=== PATIENT | female | born 1955 | race Caucasian/White ===

== ENCOUNTER 2018-11-21 18:53 | Inpatient (IN) | payer MEDICAID ==
[~2018-11-21] VITALS: Ht 177.8 cm; Wt 90.0 kg
[2018-11-21 19:51] LABS: Basophils # (auto) 0.1 uL; Basophils % (auto) 0.6 % (0.0-2.0); Eosinophils # (auto) 0 uL; Hematocrit 45.4 % (36.0-46.0); Hemoglobin 15.1 g/dL (12.2-16.2); Mean Corpuscular Hemoglobin 29.6 pg (28.0-32.0); Mean Corpuscular Hgb Conc. 33.3 g/dL (32.0-36.0); Mean Corpuscular Volume 88.9 fL (80.0-100.0); Monocytes # (auto) 0.9 uL; Monocytes % (auto) 6.3 % (0.0-12.0); Neutrophils # (auto) 12.7 uL; Neutrophils % (auto) 86.1 % (37.0-80.0); Platelet Count (auto) 319 10^3/uL (140-450); Red Cell Distribution Width 13.4 % (11.8-14.3); White Blood Cell 14.8 10^3/uL (4.4-10.8)
[2018-11-21 20:08] LABS: Albumin 3.7 g/dL (3.4-5.0); Anion Gap 12 (5-15); Blood Urea Nitrogen 16 mg/dL (7-18); Calcium 9.4 mg/dL (8.5-10.1); Carbon Dioxide 24 mmol/L (21-32); Chloride 103 mmol/L (98-107); Glucose 130 mg/dL (74-106); Magnesium 2.1 mg/dL (1.6-2.6); Potassium 3.6 mmol/L (3.5-5.1); Sodium 139 mmol/L (136-145)
[2018-11-21 20:14] LABS: Alanine Aminotransferase 116 U/L (13-56); Alkaline Phosphatase 155 U/L (45-117); Aspartate Aminotransferase 52 U/L (15-37); BUN/Creatinine Ratio 14.5; Bilirubin, Total 0.2 mg/dL (0.2-1.0); GFR African American 65 mL/min; GFR Non-African American 54 mL/min; Total Protein 8.9 g/dL (6.4-8.2)
[2018-11-22] MEDS ORDERED: IPRATROPIUM BROM 0.5 MG/2.5ML INH SOL NEB ONE (03:00)
[2018-11-22] MEDS ORDERED: LEVOFLOXACIN 250 MG TAB PO ONE (03:00)
[2018-11-22] MEDS ORDERED: methylPREDNISolone SOD SUCC 125 MG/2 ML VL IM ONE (03:00)
[2018-11-22] MEDS ORDERED: ALBUTEROL SULF 2.5 MG/0.5ML(0.5%) NEB SOLN NEB ONE (03:00)
[2018-11-22] MEDS ORDERED: TEMAZEPAM 15 MG CAP PO PRN (04:30)
[2018-11-22] MEDS ORDERED: ONDANSETRON HCL 4 MG/2 ML VIAL IV PRN (04:30)
[2018-11-22] MEDS: IPRATROPIUM BROM 0.5 MG/2.5ML INH SOL NEB SCH ×3 (05:36→19:16)
[2018-11-22] MEDS: ALBUTEROL SULF 2.5 MG/0.5ML(0.5%) NEB SOLN NEB SCH ×3 (05:36→19:16)
[2018-11-22] MEDS ORDERED: ACETAMINOPHEN 325 MG TAB PO PRN (06:57)
[2018-11-22] MEDS: LEVOTHYROXINE SODIUM 100 MCG TAB PO SCH (07:31)
[2018-11-22 09:45] VITALS: BP 141/85
--- NOTE | 2018-11-22 09:45 | NUR ---
Received patient from ER via wheelchair. Patient in bed, with bed in lowest locked position and call light within reach. Patient on 2L NC and resting comfortably. No complaints of pain or SOB. VS 97.7, 98 bpm, 93%, 14RR, bp 141/85. Will continue to monitor.
[2018-11-22] MEDS: cefTRIAXone 1GM/50ML D5W 50 ML IV SCH (09:58)
[2018-11-22] MEDS: FAMOTIDINE 20 MG TAB PO SCH ×2 (09:58→22:36)
--- NOTE | 2018-11-22 11:43 | NUR ---
Dr. Littlejohn bedside with patient discussing plan of care.
[2018-11-22] MEDS ORDERED: AZITHROMYCIN 250 MG TAB PO ONE (12:00)
[2018-11-22] MEDS ORDERED: LEVO100T8 PO (12:01)
--- NOTE | 2018-11-22 12:05 | NUR ---
Talked to [facility], patient needs to be NPO for abdominal US, placed NPO orders per [place] order.
[2018-11-22 13:00] VITALS: BP 119/74
[2018-11-22 13:03] LABS: Basophils # (auto) 0 uL; Basophils % (auto) 0.4 % (0.0-2.0); Eosinophils # (auto) 0 uL; Hematocrit 39.4 % (36.0-46.0); Hemoglobin 13.3 g/dL (12.2-16.2); Lymphocytes # (auto) 0.7 uL; Lymphocytes % (auto) 5.6 % (10.0-50.0); Mean Corpuscular Hemoglobin 29.4 pg (28.0-32.0); Mean Corpuscular Hgb Conc. 33.8 g/dL (32.0-36.0); Mean Corpuscular Volume 86.9 fL (80.0-100.0); Monocytes # (auto) 0.1 uL; Monocytes % (auto) 1.1 % (0.0-12.0); Neutrophils % (auto) 92.9 % (37.0-80.0); Platelet Count (auto) 288 10^3/uL (140-450); Red Blood Cells 4.53 10^6/uL (4.0-5.20); Red Cell Distribution Width 13.2 % (11.8-14.3); White Blood Cell 11.8 10^3/uL (4.4-10.8)
[2018-11-22 13:19] LABS: Albumin 3.3 g/dL (3.4-5.0); BUN/Creatinine Ratio 21.9; Calcium 9.1 mg/dL (8.5-10.1)
[2018-11-22 13:22] LABS: Bilirubin, Total 0.2 mg/dL (0.2-1.0); Total Protein 8.2 g/dL (6.4-8.2)
[2018-11-22 14:16] LABS: Urine WBC None Seen /hpf (0 - 5)
[2018-11-22 14:32] LABS: Urine Bacteria FEW /hpf (None Seen); Urine Blood Negative /uL (Negative); Urine Hyaline Cast FEW /lpf (0 - 2); Urine Specific Gravity 1.017 (1.001-1.035)
[2018-11-22 16:40] VITALS: BP 119/74
--- NOTE | 2018-11-22 16:44 | NUR ---
Ultrasound bedside in patients room completing US of abdomen
[2018-11-22 17:00] VITALS: BP 114/65
--- NOTE | 2018-11-22 19:34 | NUR ---
OPENING NOTES RECEIVED REPORT FROM DAY SHIFT NURSE, LUPE. PT IS AWAKE, ALERT AND ORIENTATED X 4. NO S/S OF DISTRESS NOR PAIN NOTED. NO S/S OF SOB. BED IS IN LOWEST POSITION WITH SIDE RAILS UP X 2. BED BRAKES ARE LOCKED AND CALL LIGHT IS WITH IN REACH. HOB IS 30 DEGREES. DISCUSSED POC WITH PATIENT, PT VERBALIZED UNDERSTANDING. WILL CONTINUE TO MONITOR Q 1HR.
[2018-11-22 22:00] VITALS: BP 123/60
[2018-11-23] MEDS: ALBUTEROL SULF 2.5 MG/0.5ML(0.5%) NEB SOLN NEB SCH ×4 (00:32→19:28)
[2018-11-23] MEDS: IPRATROPIUM BROM 0.5 MG/2.5ML INH SOL NEB SCH ×4 (00:32→19:28)
[2018-11-23 05:00] VITALS: BP 119/71
[2018-11-23] MEDS: LEVOTHYROXINE SODIUM 100 MCG TAB PO SCH (06:00)
[2018-11-23 06:02] LABS: Basophils # (auto) 0.1 uL; Basophils % (auto) 0.9 % (0.0-2.0); Eosinophils # (auto) 0 uL; Eosinophils % (auto) 0.3 % (0.0-7.0); Hematocrit 39.8 % (36.0-46.0); Hemoglobin 13.2 g/dL (12.2-16.2); Lymphocytes # (auto) 2.3 uL; Lymphocytes % (auto) 15.3 % (10.0-50.0); Mean Corpuscular Hemoglobin 29.4 pg (28.0-32.0); Mean Corpuscular Hgb Conc. 33.2 g/dL (32.0-36.0); Mean Corpuscular Volume 88.6 fL (80.0-100.0); Monocytes # (auto) 1.1 uL; Monocytes % (auto) 7.5 % (0.0-12.0); Neutrophils # (auto) 11.7 uL; Nucleated Red Blood Cells % 0.1 %; Platelet Count (auto) 297 10^3/uL (140-450); Red Cell Distribution Width 13.4 % (11.8-14.3); White Blood Cell 15.4 10^3/uL (4.4-10.8)
[2018-11-23 06:26] LABS: BUN/Creatinine Ratio 30.4; Calcium 8.8 mg/dL (8.5-10.1)
--- NOTE | 2018-11-23 07:24 | NUR ---
closing notes endorsed care to day shift nurseJessica.
--- NOTE | 2018-11-23 08:00 | NUR ---
Morning note patient resting in bed with even and unlabored respirations, no distress noted. Instructed patient on POC, fall precautions and to call for assistance as needed. Patient verbalized understanding. Fall precautions in place with call light within reach. Will continue to monitor q1hr & PRN.
[2018-11-23 09:00] VITALS: BP 92/52
--- NOTE | 2018-11-23 09:45 | NUR ---
was at bedside - Dr. Littlejohn
[2018-11-23] MEDS ORDERED: methylPREDNISolone SOD SUCC 40 MG/ML VL IV SCH (10:00)
[2018-11-23] MEDS: cefTRIAXone 1GM/50ML D5W 50 ML IV SCH (10:12)
[2018-11-23] MEDS: AZITHROMYCIN 250 MG TAB PO SCH (10:13)
[2018-11-23] MEDS: FAMOTIDINE 20 MG TAB PO SCH ×2 (10:13→22:03)
[2018-11-23 13:00] VITALS: BP 117/75
--- NOTE | 2018-11-23 16:07 | NUR ---
Patient resting in bed eyes closed, with even and unlabored respirations, no distress noted. Call light within reach. Will continue to monitor q1hr & PRN.
[2018-11-23 17:00] VITALS: BP 104/61
--- NOTE | 2018-11-23 18:45 | NUR ---
Closing note patient resting in bed with even and unlabored respirations, no distress noted. Fall precautions in place with bed in lowest locked position with x2 side rails up and call light within reach.
--- NOTE | 2018-11-23 19:25 | NUR ---
Care endorsed to RORY Head
[2018-11-23] MEDS: methylPREDNISolone SOD SUCC 40 MG/ML VL IV SCH ×2 (19:54→22:03)
--- NOTE | 2018-11-23 20:20 | NUR ---
RECEIVE IN BED NO SOB IS WATCHING TV
[2018-11-23 22:21] VITALS: BP 112/64
[2018-11-24] MEDS: ALBUTEROL SULF 2.5 MG/0.5ML(0.5%) NEB SOLN NEB SCH ×5 (00:32→18:35)
[2018-11-24] MEDS: IPRATROPIUM BROM 0.5 MG/2.5ML INH SOL NEB SCH ×5 (00:32→18:36)
[2018-11-24 05:00] VITALS: BP 117/70
[2018-11-24] MEDS: methylPREDNISolone SOD SUCC 40 MG/ML VL IV SCH ×3 (06:19→21:30)
[2018-11-24] MEDS: LEVOTHYROXINE SODIUM 100 MCG TAB PO SCH (06:20)
--- NOTE | 2018-11-24 06:33 | NUR ---
Respiratory note: PEAK FLOW MEASURED 225LPM PRE MEDNEB TX, POST TX 250LPM. GOAL IS 445LPM. PT TOLERATED WELL.
[2018-11-24 09:00] VITALS: BP 128/76
[2018-11-24] MEDS: cefTRIAXone 1GM/50ML D5W 50 ML IV SCH (09:21)
[2018-11-24] MEDS: AZITHROMYCIN 250 MG TAB PO SCH (09:21)
[2018-11-24] MEDS: FAMOTIDINE 20 MG TAB PO SCH ×2 (09:21→21:30)
--- NOTE | 2018-11-24 12:28 | NUR ---
Respiratory note: PEAK FLOW MEASURED 220LPM PRE MEDNEB TX, POST TX 300LPM. GOAL IS 445LPM. PT TOLERATED WELL.
[2018-11-24 16:31] VITALS: BP 114/66
--- NOTE | 2018-11-24 18:10 | NUR ---
IV removed IV removed due to patient c/o pain at IV site. No trauma to IV site noted. IV removed with clean technique, catheter intact. Dressing applied. Patient tolerated well.
--- NOTE | 2018-11-24 18:49 | NUR ---
Respiratory note:CHECKED PT PF PRE AND POST MED NEB, PRE 150, POST 200.
--- NOTE | 2018-11-24 19:10 | NUR ---
Care endorsed to RORY Zelaya
--- NOTE | 2018-11-24 20:00 | NUR ---
RECEIVE IN BED WATCHING TV GAUGE 22 ANGIOCATH INSERTED IN RT FOREARM
[2018-11-24 21:49] VITALS: BP 123/74
[2018-11-25] MEDS: IPRATROPIUM BROM 0.5 MG/2.5ML INH SOL NEB SCH ×3 (00:28→11:00)
[2018-11-25] MEDS: ALBUTEROL SULF 2.5 MG/0.5ML(0.5%) NEB SOLN NEB SCH ×3 (00:28→11:00)
[2018-11-25 05:00] VITALS: BP 115/79
[2018-11-25] MEDS: methylPREDNISolone SOD SUCC 40 MG/ML VL IV SCH (06:00)
[2018-11-25] MEDS: LEVOTHYROXINE SODIUM 100 MCG TAB PO SCH (06:48)
--- NOTE | 2018-11-25 07:47 | NUR ---
Opening Shift Note: Assumed care of patient, awake and alert. No S/S of distress/SOB or pain. Bed in lowest locked position, side rails x 2, call light within reach. Patient instructed on POC and to call for assist PRN, will continue to monitor for changes Q1hr and PRN.
[2018-11-25] MEDS: cefTRIAXone 1GM/50ML D5W 50 ML IV SCH (08:41)
[2018-11-25 09:00] VITALS: BP 132/78
[2018-11-25] MEDS: AZITHROMYCIN 250 MG TAB PO SCH (10:27)
[2018-11-25] MEDS: FAMOTIDINE 20 MG TAB PO SCH (10:27)
[2018-11-25 10:47] VITALS: BP 115/79
--- NOTE | 2018-11-25 11:10 | NUR ---
Respiratory note: PRE MED NEB TX PF:250/POST MED NEB TX PF:260
[2018-11-25 12:29] VITALS: BP 148/88
--- NOTE | 2018-11-25 13:08 | NUR ---
Discharge instructions given as ordered. Encourage to follow up with PMD as instructed. All questions and concerns addressed. Patient verbalized understanding. Medication reconciliation form completed and copy given to patient. IV removed with catheter intact, pressure dressing applied,patient tolerated well. Patient ambulated to vehicle with all personal belongings, accompanied by staff and family member. No distress noted at time of departure.
== END 2018-11-25 13:07 | disposition home or self-care (01) | DRG 133 ==
LOC: ER 18:53 → OVERFLOW 18:54 → ER 23:25 → WEST WING 11-22 09:13
PROVIDERS: ADMIT Nurse Practitioner; ATTEND Internal Medicine Nephrology
DX: J96.21 Acute and chronic respiratory failure with hypoxia (principal); N17.0 Acute kidney failure with tubular necrosis; R65.11 Systemic inflammatory response syndrome (SIRS) of non-infectious origin with acute organ dysfunction; J44.1 Chronic obstructive pulmonary disease with (acute) exacerbation; J45.901 Unspecified asthma with (acute) exacerbation; F17.210 Nicotine dependence, cigarettes, uncomplicated; D72.829 Elevated white blood cell count, unspecified; I10 Essential (primary) hypertension; E03.9 Hypothyroidism, unspecified
CPT/HCPCS: 36415; 36600; 71046; 76700; 80048; 80053; 81001; 82306; 82805; 83735; 83880; 84484; 85025; 85379; 87081; 93005; 93306; 94010; 94640; 96372; G0378; J0696

== ENCOUNTER 2020-08-13 19:12 | Emergency (ER) | payer MEDICAID, OTHER ==
[~2020-08-13] VITALS: Ht 172.7 cm; Wt 81.6 kg
[~2020-08-13 19:12] MED LIST: LEVO100T8 PO
[2020-08-13 20:03] LABS: Basophils # (auto) 0.1 10 ^3/uL (0-0.2); Basophils % (auto) 1.2 % (0.0-2.0); Eosinophils # (auto) 0 10 ^3/uL (0-0.8); Eosinophils % (auto) 0.4 % (0.0-7.0); Hematocrit 41.4 % (36.0-46.0); Hemoglobin 14.4 g/dL (12.2-16.2); Lymphocytes # (auto) 1.2 10 ^3/uL (0.4-5.4); Lymphocytes % (auto) 14.9 % (10.0-50.0); Mean Corpuscular Hemoglobin 30.3 pg (28.0-32.0); Mean Corpuscular Hgb Conc. 34.7 g/dL (32.0-36.0); Mean Corpuscular Volume 87.3 fL (80.0-100.0); Monocytes # (auto) 0.7 10 ^3/uL (0-1.3); Monocytes % (auto) 8.6 % (0.0-12.0); Neutrophils # (auto) 5.9 10 ^3/uL (1.6-8.6); Neutrophils % (auto) 74.9 % (37.0-80.0); Nucleated Red Blood Cells % 0.1 %; Platelet Count (auto) 231 10^3/uL (140-450); Red Blood Cells 4.74 10^6/uL (4.0-5.20); Red Cell Distribution Width 13.7 % (11.8-14.3); White Blood Cell 7.8 10^3/uL (4.4-10.8)
[2020-08-13 20:12] LABS: Albumin 3.3 g/dL (3.4-5.0); Anion Gap 9 (5-15); Blood Urea Nitrogen 14 mg/dL (7-18); Calcium 8.7 mg/dL (8.5-10.1); Carbon Dioxide 24 mmol/L (21-32); Chloride 100 mmol/L (98-107); Glucose 103 mg/dL (74-106); Potassium 3.7 mmol/L (3.5-5.1); Sodium 133 mmol/L (136-145)
[2020-08-13 20:14] LABS: Alanine Aminotransferase 122 U/L (13-56); Aspartate Aminotransferase 126 U/L (15-37); BUN/Creatinine Ratio 12.6; GFR African American 64 mL/min; GFR Non-African American 53 mL/min
[2020-08-13 20:19] LABS: Alkaline Phosphatase 163 U/L (45-117); Bilirubin, Total 0.4 mg/dL (0.2-1.0)
[2020-08-13] MEDS ORDERED: ALBUTEROL SULF 2.5 MG/0.5ML(0.5%) NEB SOLN NEB ONE ×2 (20:45→21:30)
[2020-08-13] MEDS ORDERED: methylPREDNISolone SOD SUCC 125 MG/2 ML VL IV ONE (20:45)
[2020-08-13] MEDS ORDERED: IPRATROPIUM BROM 0.5 MG/2.5ML INH SOL NEB ONE (21:30)
[2020-08-14 01:26] VITALS: BP 126/76
== END 2020-08-14 01:49 | disposition home or self-care (01) ==
LOC: EDBD 19:12 → ER 19:15
DX: J45.901 Unspecified asthma with (acute) exacerbation (principal)
CPT/HCPCS: 36415; 71045; 80053; 84481; 84484; 85025; 85049; 93005; 94640; 96374; 99285; J2930; J7644

== ENCOUNTER 2021-12-31 22:30 | Emergency (ER) | payer OTHER ==
[~2021-12-31] VITALS: Ht 177.8 cm; Wt 90.0 kg
[2021-12-31 22:55] VITALS: BP 141/85
[2021-12-31] MEDS ORDERED: IPRATROPIUM BROM 0.5 MG/2.5ML INH SOL NEB ONE (23:15)
[2021-12-31] MEDS ORDERED: ALBUTEROL SULF 2.5 MG/0.5ML(0.5%) NEB SOLN NEB ONE (23:15)
[2021-12-31 23:52] LABS: Basophils # (auto) 0.1 10 ^3/uL (0-0.2); Basophils % (auto) 1.2 % (0.0-2.0); Eosinophils # (auto) 0.8 10 ^3/uL (0-0.8); Eosinophils % (auto) 7.1 % (0.0-7.0); Hematocrit 46.2 % (36.0-46.0); Hemoglobin 15.3 g/dL (12.2-16.2); Mean Corpuscular Hemoglobin 29.8 pg (28.0-32.0); Mean Corpuscular Volume 90.3 fL (80.0-100.0); Monocytes # (auto) 0.7 10 ^3/uL (0-1.3); Monocytes % (auto) 6.2 % (0.0-12.0); Neutrophils # (auto) 7.6 10 ^3/uL (1.6-8.6); Neutrophils % (auto) 67.5 % (37.0-80.0); Nucleated Red Blood Cells % 0.3 %; Red Blood Cells 5.12 10^6/uL (4.0-5.20); Red Cell Distribution Width 14.1 % (11.8-14.3); White Blood Cell 11.3 10^3/uL (4.4-10.8)
[2021-12-31 23:57] LABS: Albumin 3.5 g/dL (3.4-5.0); BUN/Creatinine Ratio 21.3; Calcium 9.1 mg/dL (8.5-10.1)
[2022-01-01 00:02] LABS: Bilirubin, Total 0.2 mg/dL (0.2-1.0); Total Protein 8.7 g/dL (6.4-8.2)
[2022-01-01] MEDS ORDERED: methylPREDNISolone SOD SUCC 125 MG/2 ML VL IV ONE (00:15)
[2022-01-01] MEDS ORDERED: ALBU0.084 NEB (03:06)
[2022-01-01] MEDS ORDERED: PRED20TA2 PO (03:06)
== END 2022-01-01 04:59 | disposition home or self-care (01) ==
LOC: ER 22:35
DX: J45.901 Unspecified asthma with (acute) exacerbation (principal); J44.9 Chronic obstructive pulmonary disease, unspecified; E03.9 Hypothyroidism, unspecified; I10 Essential (primary) hypertension; K21.9 Gastro-esophageal reflux disease without esophagitis; Z76.0 Encounter for issue of repeat prescription; Z20.822 Contact with and (suspected) exposure to COVID-19
CPT/HCPCS: 36415; 71045; 80053; 83880; 84484; 85025; 87426; 87804; 94640; 96374; 99284; J2930; J7644

== ENCOUNTER 2023-07-06 19:43 | Inpatient (IN) | payer MEDICARE, OTHER ==
[~2023-07-06] VITALS: Ht 177.8 cm; Wt 124.6 kg
[~2023-07-06 19:43] MED LIST changes: +ALBU0.084 NEB; +PRED20TA2 PO
[2023-07-06] MEDS: IPRATROPIUM BROM 0.5 MG/2.5ML INH SOL NEB ONE (21:32)
[2023-07-06] MEDS: ALBUTEROL SULF 2.5 MG/0.5ML(0.5%) NEB SOLN NEB ONE (21:32)
[2023-07-06 21:36] LABS: Basophils # (auto) 0 10 ^3/uL (0-0.2); Basophils % (auto) 0.2 % (0.0-2.0); Eosinophils # (auto) 0.5 10 ^3/uL (0-0.8); Eosinophils % (auto) 5.5 % (0.0-7.0); Hematocrit 43.8 % (36.0-46.0); Hemoglobin 14.5 g/dL (12.2-16.2); Lymphocytes # (auto) 1.4 10 ^3/uL (0.4-5.4); Lymphocytes % (auto) 15.8 % (10.0-50.0); Mean Corpuscular Hemoglobin 29.8 pg (28.0-32.0); Mean Corpuscular Hgb Conc. 33.1 g/dL (32.0-36.0); Mean Corpuscular Volume 90.1 fL (80.0-100.0); Monocytes # (auto) 0.7 10 ^3/uL (0-1.3); Monocytes % (auto) 7.3 % (0.0-12.0); Neutrophils # (auto) 6.4 10 ^3/uL (1.6-8.6); Neutrophils % (auto) 71.2 % (37.0-80.0); Nucleated Red Blood Cells % 0.1 %; Red Blood Cells 4.86 10^6/uL (4.0-5.20); Red Cell Distribution Width 12.9 % (11.8-14.3)
[2023-07-06 21:50] LABS: INR 0.98 (0.9-1.15); Partial Thromboplastin Time 26.8 SEC (24.5-34.5); Prothrombin Time 10.4 sec (9.3-11.8)
[2023-07-06 21:54] LABS: Alanine Aminotransferase 24 U/L (7-40); Alkaline Phosphatase 114 U/L (46-116); Anion Gap 4 (5-15); Aspartate Aminotransferase 23 U/L (13-40); BUN/Creatinine Ratio 15.3 (10.0-20.0); Bilirubin, Total 0.3 mg/dL (0.2-1.0); Blood Urea Nitrogen 13 mg/dL (9-23); Calcium 9.5 mg/dL (8.7-10.4); Carbon Dioxide 28 mmol/L (20-30); Chloride 103 mmol/L (98-107); Glucose 139 mg/dL (74-106); Potassium 3.9 mmol/L (3.5-5.1); Sodium 135 mmol/L (136-145); Total Protein 8.3 g/dL (5.7-8.2)
[2023-07-06 22:34] LABS: Base Excess -0.5 mmol/L (-2.0-2.0)
[2023-07-07] VITALS (16 sets, daily range): BP systolic 109–127; BP diastolic 64–67; PULSE 86–106; RESP 13–20; TEMP 98.2–98.7; O2SAT 90–98
[2023-07-07] MEDS: IPRATROPIUM BROM 0.5 MG/2.5ML INH SOL NEB ONE ×2 (00:32→07:39)
[2023-07-07] MEDS: ALBUTEROL SULF 2.5 MG/0.5ML(0.5%) NEB SOLN ONE (00:33)
[2023-07-07] MEDS: ALBUTEROL SULF 2.5 MG/0.5ML(0.5%) NEB SOLN NEB ONE ×2 (00:33→07:38)
[2023-07-07] MEDS: IPRATROPIUM BROM 0.5 MG/2.5ML INH SOL ONE (00:33)
[2023-07-07] MEDS: methylPREDNISolone SOD SUCC 125 MG/2 ML VL IV ONE (01:47)
[2023-07-07] MEDS: cefTRIAXone 1GM/50ML D5W 50 ML IV ONE (01:47)
[2023-07-07] MEDS: AZITHROMYCIN 500MG/ 250ML 250 ML IV ONE (02:06)
[2023-07-07 03:37] LABS: COVID19 ANTIGEN SOFIA FIA NEGATIVE (NEGATIVE); Rapid Influenza A Negative (Negative); Rapid Influenza B Negative (Negative)
[2023-07-07] MEDS ORDERED: MORPHINE SULFATE INJ 2 MG/ml SYRG IV PRN (06:15)
[2023-07-07] MEDS ORDERED: NITROGLYCERIN 0.4 MG SL TAB SL PRN (06:15)
[2023-07-07] MEDS ORDERED: MORPHINE SULFATE 4 MG/ML SYR/VIAL IV PRN (06:45)
[2023-07-07 06:48] LABS: Basophils # (auto) 0.1 10 ^3/uL (0-0.2); Basophils % (auto) 0.6 % (0.0-2.0); Eosinophils # (auto) 0 10 ^3/uL (0-0.8); Eosinophils % (auto) 0.2 % (0.0-7.0); Hematocrit 42.7 % (36.0-46.0); Hemoglobin 14.1 g/dL (12.2-16.2); Lymphocytes # (auto) 0.6 10 ^3/uL (0.4-5.4); Lymphocytes % (auto) 6.2 % (10.0-50.0); Mean Corpuscular Hgb Conc. 32.9 g/dL (32.0-36.0); Monocytes # (auto) 0.1 10 ^3/uL (0-1.3); Neutrophils # (auto) 9.3 10 ^3/uL (1.6-8.6); Red Blood Cells 4.69 10^6/uL (4.0-5.20); Red Cell Distribution Width 13.1 % (11.8-14.3); White Blood Cell 10.1 10^3/uL (4.4-10.8)
[2023-07-07] MEDS: IOHEXOL 350 MG/ML 100ML IJ ONE (06:59)
[2023-07-07 07:11] LABS: Alanine Aminotransferase 19 U/L (7-40); Alkaline Phosphatase 104 U/L (46-116); Anion Gap 6 (5-15); BUN/Creatinine Ratio 11.3 (10.0-20.0); Blood Urea Nitrogen 9 mg/dL (9-23); Calcium 9.2 mg/dL (8.7-10.4); Carbon Dioxide 24 mmol/L (20-30); Chloride 105 mmol/L (98-107); Glucose 174 mg/dL (74-106); Potassium 4.4 mmol/L (3.5-5.1); Sodium 135 mmol/L (136-145)
[2023-07-07 07:12] LABS: Albumin 3.8 g/dL (3.2-4.8); Aspartate Aminotransferase 18 U/L (13-40); Bilirubin, Total 0.3 mg/dL (0.2-1.0); Total Protein 7.9 g/dL (5.7-8.2)
[2023-07-07] MEDS: ALBUTEROL SULF 2.5 MG/0.5ML(0.5%) NEB SOLN NEB SCH ×2 (10:36→14:19)
[2023-07-07] MEDS: IPRATROPIUM BROM 0.5 MG/2.5ML INH SOL NEB SCH ×2 (10:36→14:20)
[2023-07-07] MEDS: BUDESONIDE (INHALATION) 0.5 MG/2 ML NEB NEB SCH (10:36)
[2023-07-07] MEDS: AZITHROMYCIN 250 MG TAB PO ONE (12:05)
[2023-07-07] MEDS: PANTOPRAZOLE 40 MG TAB PO ONE (12:05)
[2023-07-07] MEDS: methylPREDNISolone SOD SUCC 125 MG/2 ML VL IV SCH (14:29)
[2023-07-07 18:28] LABS: Urine Bacteria None Seen /hpf (None Seen)
[2023-07-07 18:48] LABS: Urine Blood Negative /uL (Negative); Urine Clarity Clear (Clear); Urine Color Yellow (Yellow); Urine Protein, UAD TRACE (Negative); Urine Urobilinogen Normal (Negative); Urine WBC <1 /hpf (0 - 5); Urine pH 6.5 (5.0-9.0)
[2023-07-07 18:49] LABS: Urine Specific Gravity > 1.050 (1.001-1.035)
[2023-07-07] MEDS: MELATONIN 5 MG TAB PO ONE (22:47)
[2023-07-08] VITALS (17 sets, daily range): BP systolic 102–124; BP diastolic 39–72; PULSE 86–102; RESP 18–21; TEMP 36.1; O2SAT 92–98
[2023-07-08] MEDS: ACETAMINOPHEN 325 MG TAB PO PRN ×2 (01:15→13:31)
[2023-07-08] MEDS: cefTRIAXone 1GM/50ML D5W 50 ML IV SCH (01:16)
[2023-07-08] MEDS ORDERED: methylPREDNISolone SOD SUCC 125 MG/2 ML VL IV SCH (06:00)
[2023-07-08 06:02] LABS: Basophils # (auto) 0.1 10 ^3/uL (0-0.2); Basophils % (auto) 0.4 % (0.0-2.0); Eosinophils # (auto) 0 10 ^3/uL (0-0.8); Hematocrit 40.2 % (36.0-46.0); Hemoglobin 12.7 g/dL (12.2-16.2); Lymphocytes # (auto) 0.9 10 ^3/uL (0.4-5.4); Lymphocytes % (auto) 4.3 % (10.0-50.0); Mean Corpuscular Hgb Conc. 31.7 g/dL (32.0-36.0); Mean Corpuscular Volume 91.3 fL (80.0-100.0); Monocytes # (auto) 0.7 10 ^3/uL (0-1.3); Monocytes % (auto) 3.4 % (0.0-12.0); Neutrophils # (auto) 18.4 10 ^3/uL (1.6-8.6); Neutrophils % (auto) 91.9 % (37.0-80.0); Red Cell Distribution Width 12.6 % (11.8-14.3)
[2023-07-08] MEDS: LEVOTHYROXINE SODIUM 100 MCG TAB PO SCH (06:14)
[2023-07-08 06:31] LABS: Alanine Aminotransferase 18 U/L (7-40); Alkaline Phosphatase 95 U/L (46-116); Anion Gap 5 (5-15); Aspartate Aminotransferase 14 U/L (13-40); Bilirubin, Total 0.2 mg/dL (0.2-1.0); Blood Urea Nitrogen 13 mg/dL (9-23); Calcium 9.7 mg/dL (8.5-10.1); Carbon Dioxide 24 mmol/L (20-30); Chloride 105 mmol/L (98-107); Glucose 143 mg/dL (74-106); Potassium 4.5 mmol/L (3.5-5.1); Sodium 134 mmol/L (136-145); Total Protein 7.6 g/dL (5.7-8.2)
[2023-07-08] MEDS: PANTOPRAZOLE 40 MG TAB PO SCH (10:00)
[2023-07-08] MEDS: AZITHROMYCIN 250 MG TAB PO SCH (10:02)
[2023-07-08] MEDS: methylPREDNISolone SOD SUCC 125 MG/2 ML VL IV ONE (12:04)
[2023-07-08] MEDS: methylPREDNISolone SOD SUCC 40 MG/ML VL IV SCH (13:31)
[2023-07-09] VITALS (15 sets, daily range): BP systolic 108–140; BP diastolic 61–81; PULSE 74–100; RESP 18–20; TEMP 97.6–98.2; O2SAT 94–99
[2023-07-09] MEDS: GABAPENTIN 100 MG CAP PO ONE (00:18)
[2023-07-09] MEDS: MELATONIN 5 MG TAB PO ONE (00:18)
[2023-07-09] MEDS: cefTRIAXone 1GM/50ML D5W 50 ML IV SCH (00:18)
[2023-07-09] MEDS: GABAPENTIN 100 MG CAP PO SCH (06:05)
[2023-07-10] VITALS (19 sets, daily range): BP systolic 103–147; BP diastolic 51–82; PULSE 71–110; RESP 14–20; TEMP 97.7–98.2; O2SAT 92–100
[2023-07-10 08:31] LABS: Hematocrit 39.1 % (36.0-46.0); Hemoglobin 12.7 g/dL (12.2-16.2); Mean Corpuscular Hemoglobin 28.9 pg (28.0-32.0); Mean Corpuscular Hgb Conc. 32.4 g/dL (32.0-36.0); Mean Corpuscular Volume 89.3 fL (80.0-100.0); Red Blood Cells 4.38 10^6/uL (4.0-5.20); Red Cell Distribution Width 13.1 % (11.8-14.3)
[2023-07-10 08:35] LABS: Basophils % (manual) 0 (0.0-2.0); Blast Cells 0; Eosinophils % (manual) 0 (0-7); Metamyelocytes % 0; Myelocytes % 0; Promyelocytes % 0; Reactive Lymphocytes 0
[2023-07-10 08:42] LABS: Band Neutrophils % (manual) 1; Lymphocytes % (manual) 5 (10.0-50.0); Monocytes % (manual) 3 (0-12)
[2023-07-10 08:44] LABS: Platelet Estimate Adequate; RBC Morphology Normal
[2023-07-10] MEDS ORDERED: GABA-1250 PO (15:05)
[2023-07-11] VITALS (16 sets, daily range): BP systolic 95–159; BP diastolic 58–92; PULSE 61–100; RESP 16–21; TEMP 98.1–99.7; O2SAT 93–99
[2023-07-12] VITALS (10 sets, daily range): BP systolic 112–131; BP diastolic 49–80; PULSE 74–96; RESP 17–20; TEMP 97.8–98.8; O2SAT 94–99
[2023-07-12] MEDS: predniSONE 20 MG TAB PO SCH (09:58)
[2023-07-12] MEDS ORDERED: UMEC1AER IN (10:19)
[2023-07-12] MEDS ORDERED: AZIT-74 PO (10:20)
[2023-07-12] MEDS ORDERED: PRED20TA2 PO (10:20)
== END 2023-07-12 12:59 | disposition home or self-care (01) | DRG 177 ==
LOC: ER 19:43 → TELE 07-07 06:17 → TELE-WESTW 07-07 17:24 → WEST WING 07-07 23:00
PROVIDERS: ADMIT Internal Medicine; ATTEND Internal Medicine
DX: J15.69 Pneumonia due to other Gram-negative bacteria (principal); J96.01 Acute respiratory failure with hypoxia; J44.1 Chronic obstructive pulmonary disease with (acute) exacerbation; J45.901 Unspecified asthma with (acute) exacerbation; J81.1 Chronic pulmonary edema; J44.0 Chronic obstructive pulmonary disease with (acute) lower respiratory infection; Z20.822 Contact with and (suspected) exposure to COVID-19; E03.9 Hypothyroidism, unspecified; J15.8 Pneumonia due to other specified bacteria; E66.9 Obesity, unspecified; I10 Essential (primary) hypertension; Z80.41 Family history of malignant neoplasm of ovary; Z80.1 Family history of malignant neoplasm of trachea, bronchus and lung; Z82.0 Family history of epilepsy and other diseases of the nervous system; Z68.39 Body mass index [BMI] 39.0-39.9, adult; Z79.899 Other long term (current) drug therapy
CPT/HCPCS: 36415; 36600; 70450; 71045; 71275; 80053; 81001; 82805; 83605; 83880; 84443; 84484; 85007; 85025; 85027; 85379; 85610; 85730; 87040; 87426; 87804; 93005; 94640; G0378

== ENCOUNTER 2024-01-06 14:33 | Inpatient (IN) | payer MEDICARE, OTHER ==
[~2024-01-06] VITALS: Ht 177.8 cm; Wt 98.4 kg
[~2024-01-06 14:33] MED LIST changes: +AZIT-74 PO; +GABA-1250 PO; +UMEC1AER IN
--- NOTE | 2024-01-06 14:47 | ED.PDOC ---
SOB-HPI HPI Comments 68 year old female presents to the ED with chief complaint of SOB. Patient reports that she has been experiencing SOB with associated wheezing for the past 3 days. Patient relays that she has used her albuterol inhaler and breathing treatments daily with some short lived relief being noted. Patient denies any cough, fever, chills, chest pain, dizziness, or headache. Time Seen by MD: 14:45 Primary Care Provider: ALLAN Ventura notes: Nurses Notes, Medications, Allergies Information Source: Patient Mode of Arrival: Ambulatory Severity: Moderate Timing: Days Duration: Since onset Context: At Rest PE Risk Factors: None History of: Asthma, COPD Prehospital treatment: Breathing Tx Modifying Factors: Exertion Associated Signs and Symptoms: Wheeze Past Medical History PAST MEDICAL HISTORY: Asthma, COPD, Thyroid Surgical History: Denies all surgeries STUDIO DATA ANALYST History: No Pertinent STUDIO DATA ANALYST History Family History Family History: Reviewed,noncontributory to illness Social History Smoker: Non-Smoker Alcohol: Denies ETOH Use Drugs: Denies Drug Use Lives In: Home Constitutional: denies: chills, diaphoresis, fatigue, fever, malaise, sweats, weakness, others EENTM: denies: blurred vision, double vision, ear bleeding, ear discharge, ear drainage, ear pain, ear ringing, eye pain, eye redness, hearing loss, mouth pain, mouth swelling, nasal discharge, nose bleeding, nose congestion, nose pain, photophobia, tearing, throat pain, throat swelling, voice changes, others Respiratory: reports: shortness of breath, wheezing; denies: cough, hemoptysis, orthopnea, SOB at rest, SOB with excertion, stridor, others Cardiovascular: denies: chest pain, dizzy spells, diaphoresis, Dyspnea on exertion, edema, irregular heart beat, left arm pain, lightheadedness, palpitations, PND, syncope, others Gastrointestinal: denies: abdomen distended, abdominal pain, blood streaked bowels, constipated, diarrhea, dysphagia, difficulty swallowing, hematemesis, melena, nausea, poor appetite, poor fluid intake, rectal bleeding, rectal pain, vomiting, others Genitourinary: denies: abnormal vagina bleeding, burning, dyspareunia, dysuria, flank pain, frequency, hematuria, incontinence, pain, , vagina discharge, urgency, others Neurological: denies: dizziness, fainting, headache, left sided numbness, left sided weakness, numbness, paresthesia, pre-existing deficit, right sided numbness, right sided weakness, seizure, speech problems, tingling, tremors, weakness, others Musculoskeletal: denies: back pain, gout, joint pain, joint swelling, muscle pain, muscle stiffness, neck pain, others Integumetry: denies: bruises, change in color, change in hair/nails, dryness, laceration, lesions, lumps, rash, wounds, others Allergic/Immunocompromised: denies: Difficulty Healing, Frequent Infections, Hives, Itching, others Hematologic/Lymphatic: denies: anemia, blood clots, easy bleeding, easy bruising, swollen glands, others Endocrine: denies: excessive hunger, excessive sweating, excessive thirst, excessive urination, flushing, intolerance to cold, intolerance to heat, unexplained weight gain, unexplained weight loss, others Psychiatric: denies: anxiety, bipolar disorder, depression, hopeless, panic disorder, schizophrenia, sleepless, suicidal, others All Other Systems: Reviewed and Negative Physical Exam General Appearance: Moderate Distress, Normal HEENT: Normal ENT Inspection, PERRL/EOMI Neck: Full Range of Motion, Non-Tender, Normal, Normal Inspection Respiratory: Chest Non-Tender, No Accessory Muscle Use, Respiratory Distress, Wheezing Cardiovascular: No Edema, No JVD, No Murmur, No Gallop, Normal Peripheral Pulses, Regular Rate/Rhythm Breast Exam: Deferred Gastrointestinal: No Organomegaly, Non Tender, No Pulsatile Mass, Normal Bowel Sounds, Soft Genitalia: Deferred Pelvic: Deferred Rectal: Deferred Extremities: No calf tenderness, Normal capillary refill, Normal inspection, Normal range of motion, Non-tender, No pedal edema Musculoskeletal : Apperance: Normal Neurologic: Alert, head of business development II-XII nml as Tested, No Motor Deficits, Normal Affect, Normal Mood, No Sensory Deficits Cerebellar Function: Normal Reflexes: Normal Skin: Dry, Normal Color, Warm Lymphatic: No Adenopathy Was a procedure done? Was a procedure done?: No Differential Dx Differential Diagnosis: Anxiety, Asthma, Bronchitis, CHF, COPD X-Ray, Labs, Meds, VS Vital Signs Date Time Temp Pulse Resp B/P (MAP) Pulse Ox O2 Delivery O2 Flow Rate FiO2 01/06/24 15:06 18 100 Room Air* 0 21 21 01/06/24 14:44 98.9 113 20 157/83 (107) 97 Lab Test 01/06/24 14:55 Range/Units White Blood Count 10.4 4.4-10.8 10^3/uL Red Blood Count 4.58 4.0-5.20 10^6/uL Hemoglobin 14.0 12.2-16.2 g/dL Hematocrit 41.2 36.0-46.0 % Mean Corpuscular Volume 89.9 80.0-100.0 fL Mean Corpuscular Hemoglobin 30.5 28.0-32.0 pg Mean Corpuscular Hemoglobin Concent 34.0 32.0-36.0 g/dL Red Cell Distribution Width 13.8 11.8-14.3 % Platelet Count 260 140-450 10^3/uL Mean Platelet Volume 7.7 6.9-10.8 fL Neutrophils (%) (Auto) 67.8 37.0-80.0 % Lymphocytes (%) (Auto) 17.7 10.0-50.0 % Monocytes (%) (Auto) 8.8 0.0-12.0 % Eosinophils (%) (Auto) 5.4 0.0-7.0 % Basophils (%) (Auto) 0.3 0.0-2.0 % Neutrophils # (Auto) 7.1 1.6-8.6 10 ^3/uL Lymphocytes # (Auto) 1.8 0.4-5.4 10 ^3/uL Monocytes # (Auto) 0.9 0-1.3 10 ^3/uL Eosinophils # (Auto) 0.6 0-0.8 10 ^3/uL Basophils # (Auto) 0 0-0.2 10 ^3/uL Nucleated Red Blood Cells 0.1 % Sodium Level Pending Potassium Level Pending Chloride Level Pending Carbon Dioxide Level Pending Anion Gap Pending Blood Urea Nitrogen Pending Creatinine Pending Glomerular Filtration Rate Calc Pending BUN/Creatinine Ratio Pending Serum Glucose Pending Calcium Level Pending Troponin I High Sensitivity Pending Current Medications Medications (Trade) Dose Ordered Sig/Nichole Route Start Time Stop Time Status Last Admin Albuterol (Ventolin Medneb) 5 mg ONCE ONCE NEB 01/06/24 14:45 01/06/24 14:47 DC 01/06/24 15:06 Ipratropium [place] (Atrovent Medneb) 0.5 mg ONCE ONCE NEB 01/06/24 14:45 01/06/24 14:47 DC 01/06/24 15:06 Patient alert pain Complaining of shortness a breath. Blood pressure elevated. Saturation pristine. Wheezing. Tachycardia. No leg swelling. Was given steroid. Was given breathing treatment. Reviewed her previous visit. Explained to the patient. Continue athletic monitor. Chest XR: FINDINGS: Lines and Tubes: None Lungs: No focal consolidation. Mild hyperinflation of the lungs. Left basilar linear densities. Pleura: No effusion. No pneumothorax. Cardiomediastinal contours: Unremarkable Bones: No acute osseous abnormality. IMPRESSION: Left basilar atelectasis / scarring. Otherwise no evidence for acute cardiopulmonary disease. Images Reviewed?: Images reviewed and evaluated by me Time of 1ST Reevaluation: 15:45 Reevaluation 1ST: Unchanged Patient Education/Counseling: Diagnosis, Treatment Family Education/Counseling: No Family Present Departure 1 Departure Time of Disposition: 15:07 Impression: Primary Impression: Asthma exacerbation Qualified Codes: J45.41 - Moderate persistent asthma with (acute) ex acerbation Additional Impression: Pneumonitis Disposition: ADMITTED INPATIENT Admit to: Med Surg Condition: Guarded Critical Care Note Critical Care Time?: Yes (45 min-critical care time only) Stability Stability form required: No Heart Score Heart Score: Heart Score Response (Comments) Value History N/A 0 EKG N/A 0 Age N/A 0 Risk Factors N/A 0 Troponin N/A 0 Total 0 I personally scribed for KATE SOTELO MD ([email or web address]) on 01/06/24 at 14:47. Electronically submitted by Daniel Thacker ([email or web address]). I personally scribed for KATE SOTELO MD ([email or web address]) on 01/06/24 at 15:25. Electronically submitted by Daniel Thacker ([email or web address]). KATE SOTELO MD Jan 06, 2024 14:47
[2024-01-06] MEDS: ALBUTEROL SULF 2.5 MG/0.5ML(0.5%) NEB SOLN NEB ONE ×2 (15:06→19:28)
[2024-01-06] MEDS: IPRATROPIUM BROM 0.5 MG/2.5ML INH SOL NEB ONE ×2 (15:06→19:28)
[2024-01-06 15:17] LABS: Basophils # (auto) 0 10 ^3/uL (0-0.2); Basophils % (auto) 0.3 % (0.0-2.0); Eosinophils # (auto) 0.6 10 ^3/uL (0-0.8); Eosinophils % (auto) 5.4 % (0.0-7.0); Hematocrit 41.2 % (36.0-46.0); Lymphocytes # (auto) 1.8 10 ^3/uL (0.4-5.4); Lymphocytes % (auto) 17.7 % (10.0-50.0); Mean Corpuscular Hemoglobin 30.5 pg (28.0-32.0); Mean Corpuscular Volume 89.9 fL (80.0-100.0); Monocytes # (auto) 0.9 10 ^3/uL (0-1.3); Monocytes % (auto) 8.8 % (0.0-12.0); Neutrophils # (auto) 7.1 10 ^3/uL (1.6-8.6); Neutrophils % (auto) 67.8 % (37.0-80.0); Nucleated Red Blood Cells % 0.1 %; Platelet Count (auto) 260 10^3/uL (140-450); Red Blood Cells 4.58 10^6/uL (4.0-5.20); Red Cell Distribution Width 13.8 % (11.8-14.3); White Blood Cell 10.4 10^3/uL (4.4-10.8)
--- NOTE | 2024-01-06 15:24 | DVH ---
CHEST RADIOGRAPH Indication:sob Technique: Single frontal view of the chest was obtained Comparison: XY CHEST PORTABLE on DOS: 07/11/23, XY CHEST PORTABLE on DOS: 07/09/23, XY CHEST PORTABLE o n DOS: 07/06/23 FINDINGS: Lines and Tubes: None Lungs: No focal consolidation. Mild hyperinflation of the lungs. Left basilar linear densities. Pleura: No effusion. No pneumothorax. Cardiomediastinal contours: Unremarkable Bones: No acute osseous abnormality. IMPRESSION: Left basilar atelectasis / scarring. Otherwise no evidence for acute cardiopulmonary disease.
[2024-01-06 15:29] LABS: Chloride 106 mmol/L (98-107); Potassium 3.8 mmol/L (3.5-5.1); Sodium 140 mmol/L (136-145)
[2024-01-06 15:30] LABS: Anion Gap 8 (5-15); Carbon Dioxide 26 mmol/L (20-31)
[2024-01-06 15:35] LABS: BUN/Creatinine Ratio 20.2 (10.0-20.0); Blood Urea Nitrogen 17 mg/dL (9-23); Glucose 96 mg/dL (74-106)
[2024-01-06] MEDS: cefTRIAXone 1GM/50ML D5W 50 ML IV ONE (16:57)
[2024-01-06] MEDS: methylPREDNISolone SOD SUCC 125 MG/2 ML VL IV ONE (17:09)
[2024-01-06] MEDS ORDERED: IPRATROPIUM BROM 0.5 MG/2.5ML INH SOL HHN ONE (19:15)
[2024-01-06] MEDS ORDERED: ALBUTEROL SULF 2.5 MG/0.5ML(0.5%) NEB SOLN HHN ONE (19:15)
[2024-01-06] MEDS ORDERED: NITROGLYCERIN 0.4 MG SL TAB SL PRN (20:15)
[2024-01-06] MEDS ORDERED: MORPHINE SULFATE INJ 2 MG/ml SYRG IV PRN (20:15)
[2024-01-06] MEDS ORDERED: ONDANSETRON HCL 4 MG/2 ML VIAL IV PRN (20:15)
--- NOTE | 2024-01-06 21:33 | DVHHPRES ---
History of Present Illness Resident Creating Document: TRISTIN CALI RESIDENT History of Present Illness This is a 68-year-old female with past medical history of bronchial asthma, hypothyroidism, GERD presented to the ED with a chief complaint of shortness of breath associated with cough and whitish sputum for last 3 days prior to this admission. According to the patient the sore throat, cough with whitish sputum started 1 weeks ago and for last 3 days it was associated with shortness of breath getting worse that prompted to this visit. The patient also mentioned that she was using a her inhaler more frequent 3 but it did not relief shortness of breath. In July 11, 2023 her last attack was in July 11, 2023 and was diagnosed with pneumonia with acute exacerbation of bronchial asthma. She also mentioned positive sick contact and denies chest pain, shortness chest pain, dizziness, diaphoresis, abdominal pain, nausea vomiting or any change in bowel or bladder habit . Past Medical History Bronchial asthma, hypothyroidism, GERD Past Surgical History Cholecystectomy, right tympanoplasty and retinal detachment of right eye Past Social History Smoker, 40 pack year smoking history and quit 4 years ago, occasional drinker and never tried any drugs. Review of Systems Constitutional: No: Fever, Chills, Sweats, Weakness, Malaise, Other Eyes: No: Pain, Vision change, Conjunctivae inflammation, Eyelid inflammation, Other, Redness ENT: No: Ear pain, Ear discharge, Nose pain, Nose discharge, Nose congestion, Mouth pain, Mouth swelling, Throat pain, Throat swelling, Other Respiratory: Cough, Shortness of breath, Wheezing, Sputum Cardiovascular: No: Chest Pain, Palpitations, Orthopnea, Paroxysmal Noc. Dyspnea, Edema, Lt Headedness, Other Gastrointestinal: No: Nausea, Vomiting, Abdominal Pain, Diarrhea, Constipation, Melena, Hematochezia, Other Genitourinary: No Dysuria, No Frequency, No Incontinence, No Hematuria, No Retention, No Other Musculoskeletal: No: other, neck pain, shoulder pain, arm pain, back pain, hand pain, leg pain, foot pain Skin: No: Rash, Lesions, Jaundice, Bruising, Other Neurological: No: Weakness, Numbness, Incoordination, Change in speech, Confusion, Seizures, Other Allergies: Coded Allergies: NO KNOWN ALLERGIES (Unverified , 08/31/15) Medications Current Medications Medications Dose Ordered Sig/Nichole Route Start Time Stop Time Status Last Admin Dose Admin Sodium Chloride 10 ml Q8HR IV 01/06/24 22:00 Acetaminophen/ Hydrocodone Bitart 1 tab Q4HP PRN PO 01/06/24 20:15 Ondansetron HCl 4 mg Q4HP PRN IV 01/06/24 20:15 Enoxaparin Sodium 40 mg DAILY SC 01/07/24 10:00 Nitroglycerin 0.4 mg Q5MINP PRN SL 01/06/24 20:15 Morphine Sulfate 2 mg Q30M PRN IV 01/06/24 20:15 Exam Vital Signs Vital Signs Date Time Temp Pulse Resp B/P (MAP) Pulse Ox O2 Delivery O2 Flow Rate FiO2 01/06/24 19:30 97 Room Air* 0 21 01/06/24 19:30 22 01/06/24 16:24 98.2 104 143/85 (104) 98.2 Exam Physical examination: General Appearance: Alert, Oriented X3, Cooperative, No acute distress HEENT: Atraumatic, PERRLA, EOMI, Mucous membrane moist/pink Respiratory: Bilateral wheezing in both lungs field. Cardiovascular: Regular rate, Normal S1, Normal S2, No murmurs, no chest wall tenderness Abdominal: Normal bowel sounds, Soft, No tenderness, No hepatospenomegaly, No masses Extremities: No clubbing, No cyanosis, No edema, Normal pulses, No te nderness/swelling Skin: No rashes, No breakdown, No significant lesion Neuro: Normal gait, Normal speech, Strength at 5/5 X4 ext, Normal tone, Sensation intact, grossly intact cranial nerves. Psych/Mental Status: Mental status NL, Mood NL Labs/Xrays Labs Test 01/06/24 14:55 Range/Units White Blood Count 10.4 4.4-10.8 10^3/uL Red Blood Count 4.58 4.0-5.20 10^6/uL Hemoglobin 14.0 12.2-16.2 g/dL Hematocrit 41.2 36.0-46.0 % Mean Corpuscular Volume 89.9 80.0-100.0 fL Mean Corpuscular Hemoglobin 30.5 28.0-32.0 pg Mean Corpuscular Hemoglobin Concent 34.0 32.0-36.0 g/dL Red Cell Distribution Width 13.8 11.8-14.3 % Platelet Count 260 140-450 10^3/uL Mean Platelet Volume 7.7 6.9-10.8 fL Neutrophils (%) (Auto) 67.8 37.0-80.0 % Lymphocytes (%) (Auto) 17.7 10.0-50.0 % Monocytes (%) (Auto) 8.8 0.0-12.0 % Eosinophils (%) (Auto) 5.4 0.0-7.0 % Basophils (%) (Auto) 0.3 0.0-2.0 % Neutrophils # (Auto) 7.1 1.6-8.6 10 ^3/uL Lymphocytes # (Auto) 1.8 0.4-5.4 10 ^3/uL Monocytes # (Auto) 0.9 0-1.3 10 ^3/uL Eosinophils # (Auto) 0.6 0-0.8 10 ^3/uL Basophils # (Auto) 0 0-0.2 10 ^3/uL Nucleated Red Blood Cells 0.1 % Sodium Level 140 136-145 mmol/L Potassium Level 3.8 3.5-5.1 mmol/L Chloride Level 106 98-107 mmol/L Carbon Dioxide Level 26 20-31 mmol/L Anion Gap 8 5-15 Blood Urea Nitrogen 17 9-23 mg/dL Creatinine 0.84 0.550-1.02 mg/dL Glomerular Filtration Rate Calc 77 >90 mL/min BUN/Creatinine Ratio 20.2 H 10.0-20.0 Serum Glucose 96 74-106 mg/dL Calcium Level 10.0 8.7-10.4 mg/dL Troponin I High Sensitivity < 3 L </=34 ng/L Assessment/Plan Assessment/Plan Assessment and plan: # Acute exacerbation of bronchial asthma - Med neb with albuterol and ipratropium q.2h p.r.n. - IV methylprednisolone 40 mg b.i.d. - IV azithromycin 500 mg daily # Chronic hypothyroidism - Levothyroxine 100 mcg p.o. daily # Prediabetic, hemoglobin A1c 5.8 - Counseled patient regarding healthy low carb diet, lifestyle modification and physical exercise # DVT prophylaxis - Lovenox 40 mg sc daily. Goal of care discussed with the patient for more than 20 minutes full code Plan of treatment discussed with Dr. Chew Plan discussed with: Patient, Other My Orders Orders - TRISTIN CALI RESIDENT Procedure Category Date Status Time Admit ADMIT 01/06/24 Transmitted 20:11 Code Status CODE 01/06/24 Transmitted 20:11 Sodium Chloride Lock PHA 01/06/24 In Process (Saline Lock Ns) 22:00 Hydrocodone-Acet PHA 01/06/24 In Process 5/325mg Tab ([place] 20:15 Ondansetron Hcl PHA 01/06/24 In Process (Zofran) 20:15 Enoxaparin Sodium PHA 01/07/24 In Process (Lovenox) 10:00 Fall Risk Precautions [facility] 01/06/[address] 20:11 Complete Blood Count LAB 01/07/24 Verified 04:00 Comprehensive LAB 01/07/24 Verified Metabolic Panel 04:00 Nitroglycerin PHA 01/06/24 In Process Sublingual (Ntrostat 20:15 Morphine Sulfate PHA 01/06/24 In Process Injection 20:15 Oxygen By Nasal RT 01/06/24 Transmitted Cannula 20:11 Stat Ekg For Chest NELSON 01/06/24 In Process Pain 20:11 Notify Md Of Changes NELSON 01/06/24 In Process From Base 20:11 Network Architect Manager For [facility] 01/06/24 In Process 24 Hours 20:11 Emergency Dysrhythmia NELSON 01/06/24 In Process Protocol 20:11 Rhythm Strips Once NELSON 01/06/24 In Process Every Shift 20:11 Date of Service: Jan 06, 2024 Billing Provider: JESSI CHEW MD Common Visit Codes: [id number] INP/OBS CARE (HIGH) Secondary Visit Codes: [id number] CARE PLAN 30 MINUTES TRISTIN CALI RESIDENT Jan 06, 2024 21:33 JESSI CHEW MD Jan 07, 2024 12:54
[2024-01-06 21:36] VITALS: O2SAT 97
[2024-01-06 21:45] VITALS: BP 121/70; PULSE 108; RESP 18; TEMP 97.8; O2SAT 97
[2024-01-06 22:03] VITALS: PULSE 102; RESP 20; O2SAT 99
[2024-01-06] MEDS: IPRATROPIUM BROM 0.5 MG/2.5ML INH SOL NEB PRN (22:03)
[2024-01-06] MEDS: ALBUTEROL SULF 2.5 MG/0.5ML(0.5%) NEB SOLN NEB PRN (22:03)
[2024-01-06] MEDS: SODIUM CHLOR 0.9% PF (SALINE LOCK) 10ML VIAL/SYR IV SCH (22:09)
[2024-01-06 22:11] VITALS: PULSE 104; RESP 20; O2SAT 99
[2024-01-06 22:29] VITALS: BP 121/70; PULSE 108; RESP 18; TEMP 97.8; O2SAT 94
[2024-01-07] VITALS (23 sets, daily range): BP systolic 92–126; BP diastolic 57–79; PULSE 73–104; RESP 18–22; TEMP 97.6–98.5; O2SAT 92–99
[2024-01-07] MEDS: IPRATROPIUM BROM 0.5 MG/2.5ML INH SOL NEB PRN (01:03)
[2024-01-07] MEDS: ALBUTEROL SULF 2.5 MG/0.5ML(0.5%) NEB SOLN NEB PRN (01:03)
[2024-01-07 03:24] LABS: Urine Bacteria None Seen /hpf (None Seen)
[2024-01-07 03:30] LABS: Urine Blood Negative /uL (Negative); Urine Clarity Clear (Clear); Urine Color Yellow (Yellow); Urine Mucus FEW (None Seen); Urine Protein, UAD TRACE (Negative); Urine Specific Gravity 1.025 (1.001-1.035); Urine Urobilinogen Normal (Negative); Urine WBC 2 /hpf (0 - 5)
[2024-01-07 05:13] LABS: Basophils # (auto) 0.1 10 ^3/uL (0-0.2); Eosinophils # (auto) 0 10 ^3/uL (0-0.8); Hematocrit 37.6 % (36.0-46.0); Hemoglobin 12.6 g/dL (12.2-16.2); Lymphocytes # (auto) 0.6 10 ^3/uL (0.4-5.4); Lymphocytes % (auto) 6.5 % (10.0-50.0); Mean Corpuscular Hemoglobin 30.3 pg (28.0-32.0); Mean Corpuscular Hgb Conc. 33.5 g/dL (32.0-36.0); Mean Corpuscular Volume 90.4 fL (80.0-100.0); Monocytes # (auto) 0.1 10 ^3/uL (0-1.3); Neutrophils # (auto) 8.5 10 ^3/uL (1.6-8.6); Neutrophils % (auto) 91.5 % (37.0-80.0); Nucleated Red Blood Cells % 0.1 %; Platelet Count (auto) 256 10^3/uL (140-450); Red Blood Cells 4.16 10^6/uL (4.0-5.20); Red Cell Distribution Width 13.6 % (11.8-14.3); White Blood Cell 9.2 10^3/uL (4.4-10.8)
[2024-01-07 05:36] LABS: Alanine Aminotransferase 31 U/L (7-40); Alkaline Phosphatase 100 U/L (46-116); Anion Gap 13 (5-15); Aspartate Aminotransferase 27 U/L (13-40); BUN/Creatinine Ratio 17.8 (10.0-20.0); Bilirubin, Total 0.2 mg/dL (0.2-1.0); Blood Urea Nitrogen 18 mg/dL (9-23); Calcium 9.9 mg/dL (8.7-10.4); Carbon Dioxide 21 mmol/L (20-31); Chloride 104 mmol/L (98-107); Glucose 193 mg/dL (74-106); Potassium 4.1 mmol/L (3.5-5.1); Sodium 138 mmol/L (136-145); Total Protein 7.8 g/dL (5.7-8.2)
[2024-01-07] MEDS: LEVOTHYROXINE SODIUM 100 MCG TAB PO SCH (06:18)
[2024-01-07] MEDS: IPRATROPIUM BROM 0.5 MG/2.5ML INH SOL NEB SCH (06:41)
[2024-01-07] MEDS: ALBUTEROL SULF 2.5 MG/0.5ML(0.5%) NEB SOLN NEB SCH (06:41)
--- NOTE | 2024-01-07 07:04 | DVHPNRES ---
Progress Note Date Seen: Jan 07, 2024 Resident Creating Document: MAURA LOVE RESIDENT Medical Necessity Reason Pt with a Central, PICC or Fol: No Subjective Review of Systems Patient is a 68-year-old female with past medical history of asthma, COPD, hypothyroidism, GERD, who came in due to shortness of breath. According to the patient, for the past 3-4 days she has been experiencing increasing shortness of breath and dyspnea, she reports using her inhaler and nebulizer at home helped transiently but then her shortness of breath and dyspnea returned which then prompted this visit to the hospital. Patient notes that her [id number] had a strep throat whom she met on 12/31/2023. Past surgical history: Cholecystectomy Home medications: Albuterol, azithromycin, gabapentin, levothyroxine, prednisolone, umeclidinium inhaler Past Hospitalization: June 2023 for COPD exacerbation Social & Personal history: Patient lives alone and is retired. Quit smoking 2 years ago, prior to that was smoking half a pack of cigarettes per day for 40 days. Denies using alcohol or drugs. Allergies: Denies Patient seen and examined at bedside. Patient is alert and oriented to time, place person and responding to all questions. General: Fatigue Eyes: No Pain, No Vision change, No Conjunctivae inflammation, No Eyelid inflammation, No Other, No Redness ENT: No Ear pain, No Ear discharge, No Nose pain, No Nose discharge, No Nose congestion, No Mouth pain, No Mouth swelling, No Throat pain, No Throat swelling, No Other Cardiovascular: No Chest Pain, No Palpitations, Dyspnea, No Edema, No Lt Headedness, No Other Respiratory: Cough, Shortness of breath, SOB with exertion, Wheezing, No Hemoptysis, No Pleuritic Pain, No Sputum, No Other Gastrointestinal: No Nausea, No Vomiting, No Abdominal Pain, No Diarrhea, No Constipation, No Melena, No Hematochezia, No Other Genitourinary: No Dysuria, No Frequency, No Incontinence, No Hematuria, No Retention, No Other Musculoskeletal: No other, No neck pain, No shoulder pain, No arm pain, No back pain, No hand pain, No leg pain, No foot pain Skin: No Rash, No Lesions, No Jaundice, No Bruising, No Other Objective vital signs Vital Sign Date Time Temp Pulse Resp B/P (MAP) Pulse Ox O2 Delivery O2 Flow Rate FiO2 01/07/24 06:51 99 20 98 01/07/24 06:41 Nasal Cannula* 3 32 01/07/24 05:00 98.1 126/70 (88) 98.1 Total Intake and Output 01/06/24 01/06/24 01/07/24 15:00 23:00 07:00 Intake Total 50 ml 0 ml Balance 50 ml 0 ml medications Current Medications Medications Dose Ordered Sig/Nichole Route Start Time Stop Time Status Last Admin Dose Admin Sodium Chloride 10 ml Q8HR IV 01/06/24 22:00 01/07/24 06:18 10 ML Acetaminophen/ Hydrocodone Bitart 1 tab Q4HP PRN PO 01/06/24 20:15 Ondansetron HCl 4 mg Q4HP PRN IV 01/06/24 20:15 Enoxaparin Sodium 40 mg DAILY SC 01/07/24 10:00 Nitroglycerin 0.4 mg Q5MINP PRN SL 01/06/24 20:15 Morphine Sulfate 2 mg Q30M PRN IV 01/06/24 20:15 Methylprednisolone Sodium Succinate 40 mg DAILY IV 01/07/24 10:00 Azithromycin 250 ml @ 125 mls/hr DAILY IV 01/07/24 10:00 Albuterol 2.5 mg Q2HPRN PRN NEB 01/07/24 00:30 01/07/24 03:17 2.5 MG Ipratropium [place] 0.5 mg Q2HPRN PRN NEB 01/07/24 00:30 01/07/24 03:17 0.5 MG Levothyroxine Sodium 100 mcg QAM@0600 PO 01/07/24 06:00 01/07/24 06:18 100 MCG Albuterol 2.5 mg Q4HR NEB 01/07/24 06:00 01/07/24 06:41 2.5 MG Ipratropium [place] 0.5 mg Q4HR NEB 01/07/24 06:00 01/07/24 06:41 0.5 MG Examination General Appearance: Cooperative. Well developed. Well nourished. NAD Head Exam: Normal inspection Neck Exam: Normal inspection. Non-tender. Normal alignment Pulmonary/Respiratory: Chest non-tender. bilateral breath sounds, trace crackles, wheezing. Cardiovascular/Chest: Regular rate and rhythm. No murmurs. No JVD. Peripheral Pulses: 2+ Radial (R). 2+ Radial (L). 2+ Pedal (R). 2+ Pedal (L) Abdominal Exam: Normal bowel sounds. Soft. normal abdomen, no visible veins, Nontender. No hepatospenomegaly. No masses Ankle Exam: Negative ankle edema Lower extremities: Trace lower extremity edema Neuro/Mental Status: A&O x4. Coherent. Thoughts/Psych: Normal thought pattern. Appropriate mood and affect. Good judgement and insight Skin Exam: Normal inspection. Normal color. Warm. Dry laboratory and microbiology Laboratory Tests 01/07/24 04:48 Test 01/07/24 04:48 Range/Units Serum Glucose 193 H 74-106 mg/dL Labs and/or images reviewed: Labs reviewed by me, Image(s) reviewed by me Problem List/Assessment/Plan Problem List/Assessment/Plan Acute exacerbation of COPD Bronchial asthma - CXR: Left basilar atelectasis/scarring. Otherwise no evidence for acute cardiopulmonary disease. - IV azithromycin 500 mg - albuterol and ipratropium med nebs - IV methylprednisolone 125 mg once, followed by IV methylprednisolone 40 mg daily Hypothyroidism - serum TSH 9.06 - levothyroxine 100 mcg p.o. q.a.m. GERD - Protonix p.o. 40 mg daily prediabetes?, Hb A1c 5.8 - we will continue to monitor Obesity, BMI 30.3 - counseled on healthy lifestyle modifications including diet and physical activity PUD prophylaxis: protonix 40mg DVT prophylaxis: Lovenox 40mg Goals of care: Full code, discussed for >16 minutes on 01/07/24 Plan discussed with patient Plan discussed with Dr. Leon Plan discussed with: Patient, Other (RN) MAURA LOVE RESIDENT Jan 07, 2024 07:04
[2024-01-07] MEDS: HYDROcodone-ACET 5/325MG TAB PO PRN (10:46)
[2024-01-07] MEDS: methylPREDNISolone SOD SUCC 40 MG/ML VL IV SCH (10:46)
[2024-01-07] MEDS: ENOXAPARIN SOD 40 MG/0.4 ML SYRINGE SC SCH (10:46)
[2024-01-07] MEDS: AZITHROMYCIN 500MG/ 250ML 250 ML IV SCH (10:46)
[2024-01-07] MEDS: PANTOPRAZOLE 40 MG TAB PO ONE (10:46)
--- NOTE | 2024-01-07 15:41 | DVHSR ---
APPROVED REPORT EXAM: LIMITED Two-dimensional and M-mode echocardiogram with Doppler and color Doppler. RISK FACTORS Obesity: Height: 5'10", Weight: 211 DIMENSIONS LVDd (3.8-5.7cm)LA (2D)3.7 (1.9-4.0cm)Aortic Root (2.0-3.7cm) EF (%) 62.0 (55-70%)Rt. Atrium4.0 (1.9-4.0cm)Asc. Aorta cm IVSd (0.7-1.1cm)RV (D)4.0 (1.8-2.4cm) Mitral Valve MitralMitral Stenosis E wave0.71m/sMV Mean GR.mmHg A wave1.00m/sMV Peak GR.mmHg E/A ratio0.72D MVAcm2 DECEL [id number] 1/2 Timems Aortic Valve Aortic ValveAortic Stenosis V11.12m/Basilia Mean GR.4mmHg V21.21m/Basilia Peak GR.6mmHg LVOT Diameter2.1 (1.8-2.4cm)Doppler AVA3.20cm2 Other Information Quality : Technically LimitedRhythm : Technically limited study due to body habitus. Conclusion lvef 70% by visual estimate normal rv function left atrium enlarged mild mitral regurg
[2024-01-07 22:35] LABS: COVID19 ANTIGEN SOFIA FIA NEGATIVE (NEGATIVE)
[2024-01-07 22:36] LABS: Rapid Influenza A Negative (Negative); Rapid Influenza B Negative (Negative)
[2024-01-08] VITALS (18 sets, daily range): BP systolic 99–125; BP diastolic 61–75; PULSE 68–97; RESP 16–22; TEMP 97.1–98; O2SAT 93–99
[2024-01-08] MEDS: PANTOPRAZOLE 40 MG TAB PO SCH (05:18)
[2024-01-08 05:54] LABS: Basophils # (auto) 0 10 ^3/uL (0-0.2); Basophils % (auto) 0.2 % (0.0-2.0); Eosinophils # (auto) 0 10 ^3/uL (0-0.8); Eosinophils % (auto) 0.1 % (0.0-7.0); Hematocrit 35.6 % (36.0-46.0); Hemoglobin 11.7 g/dL (12.2-16.2); Lymphocytes # (auto) 1.7 10 ^3/uL (0.4-5.4); Lymphocytes % (auto) 11.1 % (10.0-50.0); Mean Corpuscular Hemoglobin 29.8 pg (28.0-32.0); Mean Corpuscular Hgb Conc. 32.9 g/dL (32.0-36.0); Mean Corpuscular Volume 90.6 fL (80.0-100.0); Monocytes # (auto) 1.2 10 ^3/uL (0-1.3); Monocytes % (auto) 7.5 % (0.0-12.0); Neutrophils # (auto) 12.7 10 ^3/uL (1.6-8.6); Neutrophils % (auto) 81.1 % (37.0-80.0); Platelet Count (auto) 246 10^3/uL (140-450); Red Blood Cells 3.93 10^6/uL (4.0-5.20); Red Cell Distribution Width 13.6 % (11.8-14.3); White Blood Cell 15.7 10^3/uL (4.4-10.8)
[2024-01-08 06:03] LABS: Chloride 106 mmol/L (98-107); Potassium 4.3 mmol/L (3.5-5.1); Sodium 139 mmol/L (136-145)
[2024-01-08 06:04] LABS: Anion Gap 6 (5-15); Carbon Dioxide 27 mmol/L (20-31)
[2024-01-08 06:05] LABS: Calcium 9.5 mg/dL (8.7-10.4)
[2024-01-08 06:09] LABS: Glucose 115 mg/dL (74-106)
[2024-01-08 06:10] LABS: BUN/Creatinine Ratio 22.5 (10.0-20.0); Blood Urea Nitrogen 20 mg/dL (9-23)
--- NOTE | 2024-01-08 13:25 | DVHPNRES ---
Progress Note Date Seen: Jan 08, 2024 Resident Creating Document: KIRT WALLACE RESIDENT Medical Necessity Reason Pt with a Central, PICC or Fol: No Subjective Review of Systems Saw the patient at bedside. She follows with Dr. Ruth pulomonologist. Patient reports: No new complaints, Feels better Changes from previous H/P or p: No Changes Review of Systems: HEENT:Normal, CVS:Normal, RESPIRATORY:Abnormal (productive cough 2l nc), GI:Normal, :Normal, MSK:Normal, NEURO:Abnormal (fatinge) Objective vital signs Vital Sign Date Time Temp Pulse Resp B/P (MAP) Pulse Ox O2 Delivery O2 Flow Rate FiO2 01/08/24 09:52 82 18 96 01/08/24 09:45 Nasal Cannula 2.0 01/08/24 09:45 28 01/08/24 09:00 97.9 101/65 (77) 97.9 Total Intake and Output 01/07/24 01/07/24 01/08/24 15:00 23:00 07:00 Intake Total 250 ml 600 ml Balance 250 ml 600 ml medications Current Medications Medications Dose Ordered Sig/Nichole Route Start Time Stop Time Status Last Admin Dose Admin Sodium Chloride 10 ml Q8HR IV 01/06/24 22:00 01/08/24 05:18 10 ML Acetaminophen/ Hydrocodone Bitart 1 tab Q4HP PRN PO 01/06/24 20:15 01/08/24 09:26 1 TAB Ondansetron HCl 4 mg Q4HP PRN IV 01/06/24 20:15 Enoxaparin Sodium 40 mg DAILY SC 01/07/24 10:00 01/08/24 09:27 40 MG Nitroglycerin 0.4 mg Q5MINP PRN SL 01/06/24 20:15 Morphine Sulfate 2 mg Q30M PRN IV 01/06/24 20:15 Methylprednisolone Sodium Succinate 40 mg DAILY IV 01/07/24 10:00 01/08/24 09:27 40 MG Azithromycin 250 ml @ 125 mls/hr DAILY IV 01/07/24 10:00 01/08/24 09:26 125 MLS/HR Albuterol 2.5 mg Q2HPRN PRN NEB 01/07/24 00:30 01/07/24 03:17 2.5 MG Ipratropium [place] 0.5 mg Q2HPRN PRN NEB 01/07/24 00:30 01/07/24 03:17 0.5 MG Levothyroxine Sodium 100 mcg QAM@0600 PO 01/07/24 06:00 01/08/24 05:17 100 MCG Albuterol 2.5 mg Q4HR NEB 01/07/24 06:00 01/08/24 10:10 2.5 MG Ipratropium [place] 0.5 mg Q4HR NEB 01/07/24 06:00 01/08/24 10:10 0.5 MG Pantoprazole Sodium 40 mg DAILY@0600 PO 01/08/24 06:00 01/08/24 05:18 40 MG Examination: GENERAL:Normal, HEENT:Normal, NECK:Normal, LUNGS:Abnormal (2L nc and b/l crackles, intermittent wheezing. Decreased bilateral breath sounds, crackles, On 2 L of nasal cannula oxygen, mild dyspnea on exertion), CVS:Abnormal, ABDOMEN:Abnormal, MSK:Abnormal (pedal edema 1+ b/l ), SKIN:Normal, NEURO:Normal laboratory and microbiology Laboratory Tests 01/08/24 05:15 Test 01/08/24 05:15 Range/Units Serum Glucose 115 H 74-106 mg/dL Labs and/or images reviewed: Labs reviewed by me, Image(s) reviewed by me Problem List/Assessment/Plan Problem List/Assessment/Plan Hospital Course: a 68-year-old female with a history of asthma, COPD, hypothyroidism, and GERD, who presented with shortness of breath that worsened over the past 3-4 days despite using her inhaler and nebulizer. She recently had contact with her [id number]-[id number]-wnm who had strep throat. Her past surgical history includes a cholecystectomy, and she is on multiple medications including albuterol and levothyroxine. She was hospitalized in June 2023 for a COPD exacerbation. The patient lives alone, is retired, quit smoking two years ago after a long history of smoking, and denies alcohol or drug use. She has no known allergies. # Acute exacerbation of COPD: At home uses anora-eelipta, in hospital, excerbation as per GOLD criteria, on steroid, azithromycin and duonebs. unlikely underlying CHF, echo normal. # Leucocytosis likely due to iv steroid. # Bronchial asthma: diagnosed early in her life, as above, continue the visit with pulomonologist Dr. Ruth. # 35 pack year of prior smoking history: likely precipitated copd. # CAP both bacterial and viral common causes ruled out, sputum culture pending. # Acute hypoxic respiratory failure: SPO2 88-92 % target. 3-2 L NC oxygen. # Hypothyroidism: TSH 9.06, continue levothyroxine 100 mcg p.o. q.a.m. T3 and T4 pending. # GERD: Protonix p.o. 40 mg daily # prediabetes: Hb A1c 5.8, weight loss, lifestyle modificication. # Obesity, Grade I: BMI 31.4 # DVT prophylaxis: Lovenox 40mg Plan discussed with Dr. Leon PCP: Dr. Resendez. Code: Full code. Detailed planning needed 45 minutes of discussion. Barriers of discharge: Medical conditions getting treated. Wean to room air oxygen. Lives by herself at home. Plan discussed with: Patient, Other KIRT WALLACE RESIDENT Jan 08, 2024 13:25
[2024-01-09] VITALS (19 sets, daily range): BP systolic 107–127; BP diastolic 66–72; PULSE 62–93; RESP 16–22; TEMP 97.7–98.4; O2SAT 93–100
[2024-01-09 11:50] LABS: Free T3 1.91 pg/mL (2.3-4.2); Free T4 (Free Thyroxine) 0.9 ng/dL (0.89-1.76)
[2024-01-09 13:46] LABS: Basophils # (auto) 0.1 10 ^3/uL (0-0.2); Basophils % (auto) 0.6 % (0.0-2.0); Eosinophils # (auto) 0 10 ^3/uL (0-0.8); Eosinophils % (auto) 0.2 % (0.0-7.0); Hematocrit 37.1 % (36.0-46.0); Hemoglobin 12.3 g/dL (12.2-16.2); Lymphocytes # (auto) 0.8 10 ^3/uL (0.4-5.4); Lymphocytes % (auto) 8.2 % (10.0-50.0); Mean Corpuscular Hemoglobin 30.3 pg (28.0-32.0); Mean Corpuscular Hgb Conc. 33.3 g/dL (32.0-36.0); Mean Corpuscular Volume 90.8 fL (80.0-100.0); Monocytes # (auto) 0.4 10 ^3/uL (0-1.3); Monocytes % (auto) 3.6 % (0.0-12.0); Neutrophils % (auto) 87.4 % (37.0-80.0); Platelet Count (auto) 250 10^3/uL (140-450); Red Blood Cells 4.08 10^6/uL (4.0-5.20); Red Cell Distribution Width 13.7 % (11.8-14.3); White Blood Cell 10.3 10^3/uL (4.4-10.8)
--- NOTE | 2024-01-09 15:00 | ECG ---
[facility] Test Date: 2024-01-06 Test Time: 14:50:04 Pat Name: JOSE FRANKLIN Department: ER Room: 0281 A Gender: F Wallpaperer: THAO : 1955 Requested By: KATE SOTELO Order Number: [id number] Reading MD: Yoseph Victoria Measurements Intervals [place] Rate: 108 P: 71 HI: 168 QRS: 84 QRSD: 97 T: 29 QT: 343 QTc: 460 Interpretive Statements Sinus tachycardia Borderline right axis deviation Electronically Signed On 01-12-2024 13:25:25 PST by Yoseph Victoria Please click the below link to view image of tracing.
[2024-01-09] MEDS ORDERED: IPRATROPIUM BROM 0.5 MG/2.5ML INH SOL NEB PRN (15:30)
[2024-01-09] MEDS ORDERED: ALBUTEROL SULF 2.5 MG/0.5ML(0.5%) NEB SOLN NEB PRN (15:30)
--- NOTE | 2024-01-09 18:57 | DVHPNRES ---
Progress Note Date Seen: Jan 09, 2024 Resident Creating Document: WALLY DALE RESIDENT Medical Necessity Reason Pt with a Central, PICC or Fol: No Subjective Review of Systems This is a 68-year-old female with a history of asthma, COPD, hypothyroidism, and GERD, who presented with shortness of breath that worsened for 3-4 days despite using her inhaler and nebulizer. She recently had contact with her [id number] who had strep throat. She was hospitalized in June 2023 for a COPD exacerbation. The patient lives alone, is retired, quit smoking two years ago after a long history of smoking, and denies alcohol or drug use. She has no known allergies. Past surgical history: Cholecystectomy Home medications: Albuterol, azithromycin, gabapentin, levothyroxine, prednisolone, umeclidinium inhaler Social & Personal history: Patient lives alone and is retired. Quit smoking 2 years ago, prior to that was smoking half a pack of cigarettes per day for 40 days. Denies using alcohol or drugs. Allergies: Denies Patient seen and examined at bedside. Patient is alert and oriented to time, place person and responding to all questions. General: Fatigue, still on oxygen Eyes: No Pain, No Vision change, No Conjunctivae inflammation, No Eyelid inflammation, No Other, No Redness ENT: No Ear pain, No Ear discharge, No Nose pain, No Nose discharge, No Nose congestion, No Mouth pain, No Mouth swelling, No Throat pain, No Throat swelling, No Other Cardiovascular: No Chest Pain, No Palpitations, Dyspnea, No Edema, No Lt Headedness, No Other Respiratory: Cough, Shortness of breath, SOB with exertion, Wheezing, No Hemoptysis, No Pleuritic Pain, No Sputum, No Other Gastrointestinal: No Nausea, No Vomiting, No Abdominal Pain, No Diarrhea, No Constipation, No Melena, No Hematochezia, No Other Genitourinary: No Dysuria, No Frequency, No Incontinence, No Hematuria, No Retention, No Other Musculoskeletal: No other, No neck pain, No shoulder pain, No arm pain, No back pain, No hand pain, No leg pain, No foot pain Skin: No Rash, No Lesions, No Jaundice, No Bruising, No Other Objective vital signs Vital Sign Date Time Temp Pulse Resp B/P (MAP) Pulse Ox O2 Delivery O2 Flow Rate FiO2 01/09/24 17:00 98.4 62 18 107/68 (81) 97 98.4 01/09/24 14:47 Nasal Cannula 2.0 01/09/24 14:47 28 Total Intake and Output 01/08/24 01/08/24 01/09/24 15:00 23:00 07:00 Intake Total 250 ml 800 ml 800 ml Output Total 5 ml Balance 250 ml 795 ml 800 ml medications Current Medications Medications Dose Ordered Sig/Nichole Route Start Time Stop Time Status Last Admin Dose Admin Sodium Chloride 10 ml Q8HR IV 01/06/24 22:00 01/09/24 09:41 10 ML Acetaminophen/ Hydrocodone Bitart 1 tab Q4HP PRN PO 01/06/24 20:15 01/09/24 09:25 1 TAB Ondansetron HCl 4 mg Q4HP PRN IV 01/06/24 20:15 Enoxaparin Sodium 40 mg DAILY SC 01/07/24 10:00 01/09/24 09:25 40 MG Nitroglycerin 0.4 mg Q5MINP PRN SL 01/06/24 20:15 Morphine Sulfate 2 mg Q30M PRN IV 01/06/24 20:15 Azithromycin 250 ml @ 125 mls/hr DAILY IV 01/07/24 10:00 01/09/24 09:27 125 MLS/HR Albuterol 2.5 mg Q2HPRN PRN NEB 01/07/24 00:30 01/07/24 03:17 2.5 MG Ipratropium [place] 0.5 mg Q2HPRN PRN NEB 01/07/24 00:30 01/07/24 03:17 0.5 MG Levothyroxine Sodium 100 mcg QAM@0600 PO 01/07/24 06:00 01/09/24 05:12 100 MCG Albuterol 2.5 mg Q4HR NEB 01/07/24 06:00 01/09/24 14:47 2.5 MG Ipratropium [place] 0.5 mg Q4HR NEB 01/07/24 06:00 01/09/24 14:47 0.5 MG Pantoprazole Sodium 40 mg DAILY@0600 PO 01/08/24 06:00 01/09/24 05:12 40 MG Methylprednisolone Sodium Succinate 40 mg BID IV 01/09/24 22:00 Ipratropium [place] 0.5 mg Q6HPRN PRN NEB 01/09/24 15:30 UNV Albuterol 2.5 mg Q6HPRN PRN NEB 01/09/24 15:30 UNV Examination General Appearance: Cooperative. Well developed. Well nourished. NAD Head Exam: Normal inspection Neck Exam: Normal inspection. Non-tender. Normal alignment Pulmonary/Respiratory: Chest non-tender. bilateral breath sounds, trace crackles, wheezing. Cardiovascular/Chest: Regular rate and rhythm. No murmurs. No JVD. Peripheral Pulses: 2+ Radial (R). 2+ Radial (L). 2+ Pedal (R). 2+ Pedal (L) Abdominal Exam: Normal bowel sounds. Soft. normal abdomen, no visible veins, Nontender. No hepatospenomegaly. No masses Ankle Exam: Negative ankle edema Lower extremities: No edema Neuro/Mental Status: A&O x4. Coherent. Thoughts/Psych: Normal thought pattern. Appropriate mood and affect. Good judgement and insight Skin Exam: Normal inspection. Normal color. Warm. Dry laboratory and microbiology Laboratory Tests 01/09/24 13:26 01/08/24 05:15 Test 01/08/24 05:15 Range/Units Serum Glucose 115 H 74-106 mg/dL Problem List/Assessment/Plan Problem List/Assessment/Plan # Acute exacerbation of COPD: At home uses anora-eelipta, in hospital, excerbation as per GOLD criteria, on steroid, azithromycin and duonebs. unlikely underlying CHF, echo normal. # Leucocytosis likely due to iv steroid. # Bronchial asthma: diagnosed early in her life, as above, continue the visit with re dye hand Dr. Ruth. # 35 pack year of prior smoking history: likely precipitated COPD. # CAP both bacterial and viral common causes ruled out, sputum culture pending. # Acute hypoxic respiratory failure: SPO2 88-92 % target. 3-2 L NC oxygen. # Hypothyroidism: TSH 9.06, continue levothyroxine 100 mcg p.o. q.a.m. T3 and T4 pending. # GERD: Protonix p.o. 40 mg daily # prediabetes: Hb A1c 5.8, weight loss, lifestyle modification. # Obesity, Grade I: BMI 31.4 # DVT prophylaxis: Lovenox 40mg Status: full code Goal of care discussed for more than 20 minute Case and plan discussed with Plan discussed with: Patient My Orders My Orders Orders - WALLY DALE Procedure Category Date Status Time Methylprednisolone PHA 01/09/24 In Process Sod Succ (Solu Medrol 22:00 Date of Service: Jan 09, 2024 Billing Provider: INDIRA SR MD Common Visit Codes: [id number] INP/OBS CARE(HIGH) WALLY DALE Jan 09, 2024 18:57 INDIRA SR MD Jan 11, 2024 23:03
[2024-01-09] MEDS: methylPREDNISolone SOD SUCC 40 MG/ML VL IV SCH (22:14)
[2024-01-10] VITALS (19 sets, daily range): BP systolic 105–140; BP diastolic 58–85; PULSE 77–94; RESP 16–20; TEMP 97.7–98.6; O2SAT 94–99
--- NOTE | 2024-01-10 17:08 | DVHPNRES ---
Progress Note Date Seen: Jan 10, 2024 Resident Creating Document: WALLY DALE RESIDENT Medical Necessity Reason Pt with a Central, PICC or Fol: No Subjective Review of Systems Was seen and examined today. She continues to have shortness of breaths and intermittent cough. She is currently on 2 L of oxygen. She did not tolerate a trial in off oxygen this morning. She continues to receive breathing treatment as scheduled. She denied any new complaint. Constitutional: Denies fever no chills no feeling of malaise HEENT: Denies headache, ear pain, ear discharges, conjunctivitis, nasal discharge throat pain Cardiovascular: Denies chest pain, palpitation, orthopnea, PND, or pedal edema Respiratory: Mild shortness of breath and cough with sputum production; No hemoptysis, GI: Denies abdominal pain, nausea, vomiting, diarrhea, hematemesis, hematochezia, : Denies frequency, urgency, hematuria, Endocrine: Denies unintentional weight gain or weight loss, feeling of hot flashes, James: Denies easy bruising, bleeding disorders, epistaxis Musculoskeletal: Denies joint pains, muscle aches Psych: No evidence of depression, isi, suicidal ideation Objective vital signs Vital Sign Date Time Temp Pulse Resp B/P (MAP) Pulse Ox O2 Delivery O2 Flow Rate FiO2 01/10/24 14:16 86 18 96 01/10/24 14:10 Nasal Cannula* 2 28 01/10/24 13:00 97.7 110/66 (81) 97.7 Total Intake and Output 01/09/24 01/09/24 01/10/24 15:00 23:00 07:00 Intake Total 970 ml 2560 ml 1000 ml Output Total 0 ml Balance 970 ml 2560 ml 1000 ml medications Current Medications Medications Dose Ordered Sig/Nichole Route Start Time Stop Time Status Last Admin Dose Admin Sodium Chloride 10 ml Q8HR IV 01/06/24 22:00 01/10/24 09:13 10 ML Acetaminophen/ Hydrocodone Bitart 1 tab Q4HP PRN PO 01/06/24 20:15 01/10/24 05:49 1 TAB Ondansetron HCl 4 mg Q4HP PRN IV 01/06/24 20:15 Enoxaparin Sodium 40 mg DAILY SC 01/07/24 10:00 01/10/24 09:13 40 MG Nitroglycerin 0.4 mg Q5MINP PRN SL 01/06/24 20:15 Morphine Sulfate 2 mg Q30M PRN IV 01/06/24 20:15 Azithromycin 250 ml @ 125 mls/hr DAILY IV 01/07/24 10:00 01/10/24 09:13 125 MLS/HR Albuterol 2.5 mg Q2HPRN PRN NEB 01/07/24 00:30 01/07/24 03:17 2.5 MG Ipratropium [place] 0.5 mg Q2HPRN PRN NEB 01/07/24 00:30 01/07/24 03:17 0.5 MG Levothyroxine Sodium 100 mcg QAM@0600 PO 01/07/24 06:00 01/10/24 05:49 100 MCG Albuterol 2.5 mg Q4HR NEB 01/07/24 06:00 01/10/24 14:10 2.5 MG Ipratropium [place] 0.5 mg Q4HR NEB 01/07/24 06:00 01/10/24 14:10 0.5 MG Pantoprazole Sodium 40 mg DAILY@0600 PO 01/08/24 06:00 01/10/24 05:49 40 MG Methylprednisolone Sodium Succinate 40 mg BID IV 01/09/24 22:00 01/10/24 09:13 40 MG Ipratropium [place] 0.5 mg Q6HPRN PRN NEB 01/09/24 15:30 UNV Albuterol 2.5 mg Q6HPRN PRN NEB 01/09/24 15:30 UNV Patient Own Medication 1 DAILY IN 01/11/24 10:00 Examination General examination- Improving respiratory distress HEENT: PEERLA, no acute nasal discharge Chest: S1-S2 audible, rate and rhythm regular, no murmur Lung: Still some wheezing and ronchi Abdomen: Nondistend, BS+, nontenderness, no organomegaly Musculoskeletal: no acute joint swelling or tenderness Lower extremity: no leg edema Neurological: cranial nerves intact, no acute dysarthria or dysphagia Psychiatry: Normal mood and affect Skin: no acute rash or purpura laboratory and microbiology Laboratory Tests 01/09/24 13:26 01/08/24 05:15 Test 01/08/24 05:15 Range/Units Serum Glucose 115 H 74-106 mg/dL Problem List/Assessment/Plan Problem List/Assessment/Plan # Acute exacerbation of COPD: At home uses anora-eelipta, in hospital, excerbation as per GOLD criteria, on steroid, azithromycin and duonebs. unlikely underlying CHF, echo normal --> Resume Anora- awaitng supply from the home pharmacy # Leucocytosis likely due to iv steroid. # Bronchial asthma: diagnosed early in her life, as above, continue the visit with java websphere developer Dr. Ruth. # 35 pack year of prior smoking history: likely precipitated COPD. # CAP both bacterial and viral common causes ruled out, sputum culture pending collection # Acute hypoxic respiratory failure: SPO2 88-92 % target. 2L NC oxygen -> Will continue treatment overnight --> Not on home oxygen --> plan: To do a 6 minutes walk trial off oxygen tomorrow to assess her oxygen needs # Hypothyroidism: TSH 9.06, continue levothyroxine 100 mcg p.o. q.a.m. T3 and T4 pending. # GERD: Protonix p.o. 40 mg daily # prediabetes: Hb A1c 5.8, weight loss, lifestyle modification. # Obesity, Grade I: BMI 31.4 # DVT prophylaxis: Lovenox 40mg Status: full code Goal of care discussed for more than 19 minute Case and plan discussed with Plan discussed with: Patient My Orders My Orders Orders - WALLY DALE Procedure Category Date Status Time Patients Own PHA 01/11/24 In Process Medication 10:00 Date of Service: Jan 10, 2024 Billing Provider: INDIRA SR MD Common Visit Codes: [id number] INP/OBS CARE(HIGH) WALLY DALE Jan 10, 2024 17:08 NIDIRA SR MD Jan 11, 2024 22:56
[2024-01-11] VITALS (21 sets, daily range): BP systolic 101–137; BP diastolic 59–80; PULSE 75–98; RESP 14–20; TEMP 97.6–98.2; O2SAT 93–99
[2024-01-11] MEDS: VILANTEROL IN SCH (10:00)
[2024-01-11] MEDS: UMECLIDINIUM IN SCH (10:00)
[2024-01-11] MEDS: MAGNESIUM SULFATE 1GM/100ML 100 ML IV SCH (12:29)
[2024-01-11] MEDS: SORE THROAT SPRAY 6OZ BOTTLE MT PRN (12:57)
--- NOTE | 2024-01-11 21:25 | DVHINCON2 ---
Date of service: Jan 11, 2024 Referring Physician Gloria Agosto MD Reason for Consultation Acute hypoxic respiratory failure, asthma exacerbation and strep throat History of Present Illness A 68-year-old woman with past medical history of bronchial asthma, hypothyroidism, and GERD who presented to the ED on 01/06/24 c/o shortness of breath a/w cough and whitish sputum for 3 days prior to admission. 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 She was using her inhaler more frequently without relief. States her last attack was July 11, 2023, was dx'd with pneumonia with acute exacerbation of bronchial asthma. Pt with positive sick contact. Denied chest pain, dizziness, diaphoresis, GI or other associated symptoms. Patient was admitted for further care and pulmonary consultation is requested for evaluation and management due to these findings. Review of Systems: 14-point review of systems negative unless otherwise noted above. Past Medical History Bronchial asthma, hypothyroidism, GERD Past Surgical History Cholecystectomy, right tympanoplasty and retinal detachment of right eye Medications: Reviewed. Allergies: No known drug allergies. Family History: Alzheimer's disease, lung cancer and ovarian cancer. Social History: Former smoker, 40 pack year smoking history; quit 4 years ago Drinks alcohol occasionally. No illicit drug use. Family History: Alzheimer's disease G8 MOTHER FH: Alzheimers disease FH: lung cancer G8 FATHER FH: ovarian cancer G8 MOTHER Allergies: Coded Allergies: NO KNOWN ALLERGIES (Unverified , 08/31/15) Home Meds Active Scripts Azithromycin (ZITHROMAX TABLET) 250 Mg Tb, 250 MG PO DAILY for 5 Days, #5 TAB Prov:WALLY DALE RESIDENT 01/12/24 Prednisone (Prednisone) 20 Mg Tab, 10 MG PO 4xd for 28 Days, #90 MG Take 40mg daily for a week and decrease by 10 mg each week 40mg daily for 7days 30mg daily for 7days 20mg daily for 7 days 10mg daily for 7 days Prov:WALLY DALE RESIDENT 01/12/24 Prednisone (Prednisone) 20 Mg Tab, 20 MG PO QAM for 7 Days, #14 MG Prov:ESPINOZA TARANGO MD 07/12/23 Umeclidinium-Vilanterol (Anoro Ellipta 62.5-25 Mcg/INH) 1 Aer Aer, 1 AER IN DAILY for 30 Days, #1 AER 3 Refills Prov:ESPINOZA TARANGO MD 07/12/23 Prednisone (Prednisone) 20 Mg Tab, 40 MG PO DAILY for 5 Days, #10 MG Prov:KERA MCGHEE DO 01/01/22 Albuterol Sulfate (Albuterol Sulfate) 0.083 % Neb, 1 VIAL NEB Q4HPRN PRN for 3 Days, #14 VIAL Prov:KERA MGCHEE DO 01/01/22 Reported Medications Gabapentin (Gabapentin) 300 Mg Cap, 300 MG PO HS for 30 Days, MG 07/10/23 Levothyroxine Sodium (Levothyroxine Sodium) 100 Mcg Tab, 100 MCG PO QAM for 30 Days, MCG 11/22/18 Discontinued Scripts Azithromycin (Zithromax) 250 Mg Tab, 250 MG PO DAILY for 5 Days, #5 TAB Prov:ESPINOZA TARANGO MD 07/12/23 Current Medications Current Medications Medications (Trade) Dose Ordered Sig/Nichole Route PRN Reason Start Time Stop Time Status Last Admin Patient Own Medication 1 DAILY IN 01/11/24 10:00 Magnesium Sulfate/ Dextrose 100 ml @ 100 mls/hr Q1HR IV 01/11/24 11:00 01/11/24 12:59 DC 01/11/24 13:00 Phenol/Menthol (Chloraseptic) 1 spr Q2HP PRN MT FOR SORE THROAT 01/11/24 12:00 01/11/24 12:57 Vital Signs Vital Signs Date Time Temp Pulse Resp B/P (MAP) Pulse Ox O2 Delivery O2 Flow Rate FiO2 01/11/24 20:00 16 Room Air* 0 21 01/11/24 18:34 98 99 01/11/24 17:00 98.1 127/69 (88) 98.1 Physical Exam Gen.: Patient lying in bed in no apparent distress. On supplemental oxygen. Head: Normocephalic, atraumatic. Eyes: EOMI/PERRLA. Ears: Normal hearing. Normal anatomy. Neck/trachea: Trachea midline, supple. Nose: Normal external anatomy. Mouth: Moist mucous membranes. Chest: Decreased air entry bilaterally. No wheezing or rhonchi. Cardiovascular: Positive S1, positive S2. Regular rate and rhythm. Abdomen: Positive bowel sounds in all 4 quadrants. Soft, non-tender, non- distended. : Deferred. Rectal: Deferred. Skin: Warm, dry. Intact. Extremities: 2+ radial pulses bilaterally. No lower extremity edema. Neuro: Awake, alert, oriented x3. No gross motor or sensory deficits. Cranial n erves II through XII intact. Gait not assessed. Labs/Diagnostic Data Labs Test 01/09/24 13:26 01/08/24 05:15 01/07/24 22:00 01/07/24 04:48 Range/Units White Blood Count 10.3 # 4.4-10.8 10^3/uL Red Blood Count 4.08 4.0-5.20 10^6/uL Hemoglobin 12.3 12.2-16.2 g/dL Hematocrit 37.1 36.0-46.0 % Mean Corpuscular Volume 90.8 80.0-100.0 fL Mean Corpuscular Hemoglobin 30.3 28.0-32.0 pg Mean Corpuscular Hemoglobin Concent 33.3 32.0-36.0 g/dL Red Cell Distribution Width 13.7 11.8-14.3 % Platelet Count 250 140-450 10^3/uL Mean Platelet Volume 7.7 6.9-10.8 fL Neutrophils (%) (Auto) 87.4 H 37.0-80.0 % Lymphocytes (%) (Auto) 8.2 L 10.0-50.0 % Monocytes (%) (Auto) 3.6 0.0-12.0 % Eosinophils (%) (Auto) 0.2 0.0-7.0 % Basophils (%) (Auto) 0.6 0.0-2.0 % Neutrophils # (Auto) 9.0 H 1.6-8.6 10 ^3/uL Lymphocytes # (Auto) 0.8 0.4-5.4 10 ^3/uL Monocytes # (Auto) 0.4 0-1.3 10 ^3/uL Eosinophils # (Auto) 0 0-0.8 10 ^3/uL Basophils # (Auto) 0.1 0-0.2 10 ^3/uL Nucleated Red Blood Cells 0.0 % Sodium Level 139 136-145 mmol/L Potassium Level 4.3 3.5-5.1 mmol/L Chloride Level 106 98-107 mmol/L Carbon Dioxide Level 27 20-31 mmol/L Anion Gap 6 5-15 Blood Urea Nitrogen 20 9-23 mg/dL Creatinine 0.89 0.550-1.02 mg/dL Glomerular Filtration Rate Calc 71 >90 mL/min BUN/Creatinine Ratio 22.5 H 10.0-20.0 Serum Glucose 115 H 74-106 mg/dL Calcium Level 9.5 8.7-10.4 mg/dL Influenza Type A Antigen Negative Negative Influenza Type B Antigen Negative Negative SARS-CoV-2 Antigen (Rapid) Negative NEGATIVE Total Bilirubin 0.2 0.2-1.0 mg/dL Aspartate Amino Transferase (AST) 27 13-40 U/L Alanine Aminotransferase (ALT) 31 7-40 U/L Alkaline Phosphatase 100 46-116 U/L B-Type Natriuretic Peptide 31.52 0-100 pg/mL Total Protein 7.8 5.7-8.2 g/dL Albumin 4.0 3.2-4.8 g/dL Vitamin B12 Level 843 211-911 pg/mL Vitamin D 25-Hydroxy 29.0 L 30.0-100 ng/mL Free Thyroxine (T4) Calculated 0.90 0.89-1.76 ng/dL Free Triiodothyronine (T3) pg/mL 1.91 L 2.3-4.2 pg/mL Test 01/07/24 01:30 01/06/24 14:55 Range/Units Urine Color Yellow Yellow Urine Clarity Clear Clear Urine pH 6.0 5.0-9.0 Urine Specific [place] 1.025 1.001-1.035 Urine Protein Trace H Negative Urine Ketones Negative Negative Urine Blood Negative Negative /uL Urine Nitrite Negative Negative Urine Bilirubin Negative Negative Urine Urobilinogen Normal Negative mg/dL Urine Leukocyte Esterase Negative Negative /uL Urine RBC 1 0 - 4 /hpf Urine WBC 2 0 - 5 /hpf Urine Squamous Epithelial Cells Few <5 /hpf Urine Bacteria None seen None Seen /hpf Urine Mucus Few None Seen Urine Glucose Normal Normal mg/dL Hemoglobin A1c 5.8 H <5.7 % A1C Troponin I High Sensitivity < 3 L </=34 ng/L Thyroid Stimulating Hormone (TSH) 9.06 H 0.55-4.78 uIU/mL Assessment Impression: Acute hypoxic respiratory failure Asthma exacerbation Strep throat Hx of nicotine dependence Obesity BMI 31.1 Plan: Supplemental oxygen, 2 LPM NC Titrate to keep O2 sats above 92%. Taper O2 as tolerated. Continue bronchodilators. Continue IV steroids Continue antibiotics Incentive spirometry Monitor renal function. Monitor electrolytes. Supplement as necessary. Monitor ins and outs. Magnesium IV supplementation Diet and lifestyle modifications for weight reduction Obesity, complicates all care. DVT prophylaxis. Prognosis: Guarded given patient's multiple co-morbidities. Rest of plan per hospitalist and other consultants. Thank you Dr. Gloria Agosto MD, for allowing me to participate in this patient's care. Further recommendations will depend on the patient's clinical course. Please do not hesitate to contact me if you have any questions or concerns. This medical document was created using an electronic medical record system with [employer] dictation system. Although these documentations are being carefully reviewed, there may still be some phonetic and typographical changes. The errors are purely typographical, due to imperfection on the software program, and do not reflect any compromise in the patient's medical care Plan discussed with: Patient, Other (RORY Lugo, MD Agosto) MIGUEL SZYMANSKI MD Jan 11, 2024 21:25
--- NOTE | 2024-01-11 21:56 | DVHPNRES ---
Progress Note Date Seen: Jan 11, 2024 Resident Creating Document: WALLY DALE RESIDENT Medical Necessity Reason Pt with a Central, PICC or Fol: No Subjective Review of Systems Patient seen and examined. She is feeling much better today. She was on 2L overnight. But will try on room air today. On room air since 6:30 am. and seen walking in the hallway Constitutional: Denies fever no chills no feeling of malaise HEENT: Denies headache, ear pain, ear discharges, conjunctivitis, nasal discharge throat pain Cardiovascular: Denies chest pain, palpitation, orthopnea, PND, or pedal edema Respiratory: Mild cough; No hemoptysis, GI: Denies abdominal pain, nausea, vomiting, diarrhea, hematemesis, hematochezia, : Denies frequency, urgency, hematuria, Endocrine: Denies unintentional weight gain or weight loss, feeling of hot flashes, James: Denies easy bruising, bleeding disorders, epistaxis Musculoskeletal: Denies joint pains, muscle aches Psych: No evidence of depression, isi, suicidal ideation Objective vital signs Vital Sign Date Time Temp Pulse Resp B/P (MAP) Pulse Ox O2 Delivery O2 Flow Rate FiO2 01/11/24 20:00 16 Room Air* 0 21 01/11/24 18:34 98 99 01/11/24 17:00 98.1 127/69 (88) 98.1 Total Intake and Output 01/10/24 01/10/24 01/11/24 15:00 23:00 07:00 Intake Total 650 ml 1133 ml 425 ml Balance 650 ml 1133 ml 425 ml medications Current Medications Medications Dose Ordered Sig/Nichole Route Start Time Stop Time Status Last Admin Dose Admin Sodium Chloride 10 ml Q8HR IV 01/06/24 22:00 01/11/24 21:02 10 ML Acetaminophen/ Hydrocodone Bitart 1 tab Q4HP PRN PO 01/06/24 20:15 01/11/24 21:01 1 TAB Ondansetron HCl 4 mg Q4HP PRN IV 01/06/24 20:15 Enoxaparin Sodium 40 mg DAILY SC 01/07/24 10:00 01/11/24 09:58 40 MG Nitroglycerin 0.4 mg Q5MINP PRN SL 01/06/24 20:15 Morphine Sulfate 2 mg Q30M PRN IV 01/06/24 20:15 Azithromycin 250 ml @ 125 mls/hr DAILY IV 01/07/24 10:00 01/11/24 09:57 125 MLS/HR Albuterol 2.5 mg Q2HPRN PRN NEB 01/07/24 00:30 01/07/24 03:17 2.5 MG Ipratropium Springer 0.5 mg Q2HPRN PRN NEB 01/07/24 00:30 01/07/24 03:17 0.5 MG Levothyroxine Sodium 100 mcg QAM@0600 PO 01/07/24 06:00 01/11/24 05:19 100 MCG Albuterol 2.5 mg Q4HR NEB 01/07/24 06:00 01/11/24 18:28 2.5 MG Ipratropium Springer 0.5 mg Q4HR NEB 01/07/24 06:00 01/11/24 18:28 0.5 MG Pantoprazole Sodium 40 mg DAILY@0600 PO 01/08/24 06:00 01/11/24 05:19 40 MG Methylprednisolone Sodium Succinate 40 mg BID IV 01/09/24 22:00 01/11/24 21:01 40 MG Ipratropium Springer 0.5 mg Q6HPRN PRN NEB 01/09/24 15:30 UNV Albuterol 2.5 mg Q6HPRN PRN NEB 01/09/24 15:30 UNV Patient Own Medication 1 DAILY IN 01/11/24 10:00 Phenol/Menthol 1 spr Q2HP PRN MT 01/11/24 12:00 01/11/24 12:57 1 SPR Examination General examination- Improving respiratory distress HEENT: PEERLA, no acute nasal discharge Chest: S1-S2 audible, rate and rhythm regular, no murmur Lung: wheezing--> improving Abdomen: Nondistend, BS+, nontenderness, no organomegaly Musculoskeletal: no acute joint swelling or tenderness Lower extremity: no leg edema Neurological: cranial nerves intact, no acute dysarthria or dysphagia Psychiatry: Normal mood and affect Skin: no acute rash or purpura laboratory and microbiology Laboratory Tests 01/09/24 13:26 01/08/24 05:15 Test 01/08/24 05:15 Range/Units Serum Glucose 115 H 74-106 mg/dL Problem List/Assessment/Plan Problem List/Assessment/Plan # Acute exacerbation of COPD: At home uses anora-eelipta, in hospital, excerbation as per GOLD criteria, on steroid, azithromycin and duonebs. unlikely underlying CHF, echo normal --> Resume Anora- awaitng supply from the home pharmacy --> on room air today. Was able to walk around without desaturation. # Leucocytosis likely due to iv steroid. # Bronchial asthma: diagnosed early in her life, as above, continue the visit with photo mask cleaner Dr. Ruth. # 35 pack year of prior smoking history: likely precipitated COPD. # CAP both bacterial and viral common causes ruled out, sputum culture pending collection # Acute hypoxic respiratory failure: SPO2 88-92 % target. On room air -> Will continue treatment overnight --> Not on home oxygen --> if continue to remain stable, will discharge tommorrow # Hypothyroidism: TSH 9.06, continue levothyroxine 100 mcg p.o. q.a.m. T3 and T4 pending. # GERD: Protonix p.o. 40 mg daily # prediabetes: Hb A1c 5.8, weight loss, lifestyle modification. # Obesity, Grade I: BMI 31.4 # DVT prophylaxis: Lovenox 40mg Status: full code Goal of care discussed for more than 19 minute Case and plan discussed with Plan discussed with: Patient My Orders My Orders Orders - WALLY DALE Procedure Category Date Status Time Respiratory Culture LORRI 01/11/24 In Process W/ Gs 03:32 *Consult Dr. Magaña CONS 01/11/24 Transmitted Dionicio 13:38 Dietary Evaluation Review Comments: Continue current plan of care Expected Outcomes/Goals: F/U in 3-5 days Date of Service: Jan 11, 2024 Billing Provider: INDIRA SR MD Common Visit Codes: [id number] INP/OBS CARE(HIGH) WALLY DALE Jan 11, 2024 21:56 INDIRA SR MD Jan 11, 2024 22:44
[2024-01-12] VITALS (14 sets, daily range): BP systolic 96–142; BP diastolic 56–80; PULSE 77–98; RESP 17–20; TEMP 97.6–98.9; O2SAT 92–99
[2024-01-12] MEDS ORDERED: PRED20TA2 PO (17:33)
[2024-01-12] MEDS ORDERED: AZIT-185 PO (17:33)
--- NOTE | 2024-01-12 21:04 | DVHDSRES ---
Discharge Summary Date of Admission Resident Creating Document: WALLY DALE RESIDENT Jan 06, 2024 at 20:11 Date of Discharge: Jan 12, 2024 Admitting Diagnosis COPD exacerbation Acute respiratory failure Labs/Diagnostic Data: Laboratory Results Test 01/09/24 13:26 01/08/24 05:15 01/07/24 22:00 01/07/24 04:48 White Blood Count 10.3 10^3/uL (4.4-10.8) Red Blood Count 4.08 10^6/uL (4.0-5.20) Hemoglobin 12.3 g/dL (12.2-16.2) Hematocrit 37.1 % (36.0-46.0) Mean Corpuscular Volume 90.8 fL (80.0-100.0) Mean Corpuscular Hemoglobin 30.3 pg (28.0-32.0) Mean Corpuscular Hemoglobin Concent 33.3 g/dL (32.0-36.0) Red Cell Distribution Width 13.7 % (11.8-14.3) Platelet Count 250 10^3/uL (140-450) Mean Platelet Volume 7.7 fL (6.9-10.8) Neutrophils (%) (Auto) 87.4 % (37.0-80.0) Lymphocytes (%) (Auto) 8.2 % (10.0-50.0) Monocytes (%) (Auto) 3.6 % (0.0-12.0) Eosinophils (%) (Auto) 0.2 % (0.0-7.0) Basophils (%) (Auto) 0.6 % (0.0-2.0) Neutrophils # (Auto) 9.0 10 ^3/uL (1.6-8.6) Lymphocytes # (Auto) 0.8 10 ^3/uL (0.4-5.4) Monocytes # (Auto) 0.4 10 ^3/uL (0-1.3) Eosinophils # (Auto) 0 10 ^3/uL (0-0.8) Basophils # (Auto) 0.1 10 ^3/uL (0-0.2) Nucleated Red Blood Cells 0.0 % Sodium Level 139 mmol/L (136-145) Potassium Level 4.3 mmol/L (3.5-5.1) Chloride Level 106 mmol/L (98-107) Carbon Dioxide Level 27 mmol/L (20-31) Anion Gap 6 (5-15) Blood Urea Nitrogen 20 mg/dL (9-23) Creatinine 0.89 mg/dL (0.550-1.02) Glomerular Filtration Rate Calc 71 mL/min (>90) BUN/Creatinine Ratio 22.5 (10.0-20.0) Serum Glucose 115 mg/dL (74-106) Calcium Level 9.5 mg/dL (8.7-10.4) Influenza Type A Antigen Negative (Negative) Influenza Type B Antigen Negative (Negative) SARS-CoV-2 Antigen (Rapid) Negative (NEGATIVE) Total Bilirubin 0.2 mg/dL (0.2-1.0) Aspartate Amino Transferase (AST) 27 U/L (13-40) Alanine Aminotransferase (ALT) 31 U/L (7-40) Alkaline Phosphatase 100 U/L (46-116) B-Type Natriuretic Peptide 31.52 pg/mL (0-100) Total Protein 7.8 g/dL (5.7-8.2) Albumin 4.0 g/dL (3.2-4.8) Vitamin B12 Level 843 pg/mL (211-911) Vitamin D 25-Hydroxy 29.0 ng/mL (30.0-100) Free Thyroxine (T4) Calculated 0.90 ng/dL (0.89-1.76) Free Triiodothyronine (T3) pg/mL 1.91 pg/mL (2.3-4.2) Test 01/07/24 01:30 01/06/24 14:55 Urine Color Yellow (Yellow) Urine Clarity Clear (Clear) Urine pH 6.0 (5.0-9.0) Urine Specific [place] 1.025 (1.001-1.035) Urine Protein Trace (Negative) Urine Ketones Negative (Negative) Urine Blood Negative /uL (Negative) Urine Nitrite Negative (Negative) Urine Bilirubin Negative (Negative) Urine Urobilinogen Normal mg/dL (Negative) Urine Leukocyte Esterase Negative /uL (Negative) Urine RBC 1 /hpf (0 - 4) Urine WBC 2 /hpf (0 - 5) Urine Squamous Epithelial Cells Few /hpf (<5) Urine Bacteria None seen /hpf (None Seen) Urine Mucus Few (None Seen) Urine Glucose Normal mg/dL (Normal) Hemoglobin A1c 5.8 % A1C (<5.7) Troponin I High Sensitivity < 3 ng/L (</=34) Thyroid Stimulating Hormone (TSH) 9.06 uIU/mL (0.55-4.78) Other Laboratory Tests 01/09/24 13:26 01/08/24 05:15 Brief Hx & Hospital Course: This is a 68-year-old female with a pmhx of asthma, COPD, hypothyroidism, and GERD, who presented with shortness of breath that worsened for 3-4 days despite using her inhaler and nebulizer. She recently had contact with her [id number] who had strep throat. Patient lives alone. She is retired, quit smoking two years ago after a long history of smoking, and denies alcohol or drug use. She has no known allergies.Patient was managed on azithromycin, methylprednisolone, duoneb and 2 L of oxygen. Patient showed signs of improvement. She was able to walk without oxygen and did not desaturate. Clinically, she is doing better and cleared for discharge. Will send patient home with z-pack and prednisone 40 mg daily with a taper. Patient has been advised to follow up at the discharge clinic for further assessment to ensure that she is fully recovered. Consults/Reason for consult Reason for Consultation Acute hypoxic respiratory failure, asthma exacerbation and strep throat Operations or Procedures ORDERING PHYSICIAN: KATE SOTELO MD PROCEDURE(s): CXRP - CHEST PORTABLE REASON: sob ORDER NUMBER(s): [id number], ACCESSION NUMBER(s): [id number] CHEST RADIOGRAPH Indication:sob Technique: Single frontal view of the chest was obtained Comparison: XY CHEST PORTABLE on DOS: 07/11/23, XY CHEST PORTABLE on DOS: 07/09/23, XY CHEST PORTABLE on DOS: 07/06/23 FINDINGS: Lines and Tubes: None Lungs: No focal consolidation. Mild hyperinflation of the lungs. Left basilar linear densities. Pleura: No effusion. No pneumothorax. Cardiomediastinal contours: Unremarkable Bones: No acute osseous abnormality. IMPRESSION: Left basilar atelectasis / scarring. Otherwise no evidence for acute cardiopulmonary disease. ATED BY: NANCY WILD DO DICTATED DATE/TIME: 01/06/24 1521 SIGNED BY: NANCY WILD DO SIGNED DATE/TIME: 01/06/24 1521 ORDERING PHYSICIAN: MAURA LOVE RESIDENT PROCEDURE(s): ECIDC - ECHO 2D MODE CARDIAC DOP REASON: Dyspnea, lower extremity edema ORDER NUMBER(s): [id number], ACCESSION NUMBER(s): [id number] APPROVED REPORT EXAM: LIMITED Two-dimensional and M-mode echocardiogram with Doppler and color Doppler. RISK FACTORS Obesity: Height: 5'10", Weight: 211 DIMENSIONS LVDd (3.8-5.7cm) LA (2D) 3.7 (1.9-4.0cm) Aortic Root (2.0-3.7cm) EF (%) 62.0 (55-70%) Rt. Atrium 4.0 (1.9-4.0cm) Asc. Aorta cm IVSd (0.7-1.1cm) RV (D) 4.0 (1.8-2.4cm) Mitral Valve Mitral Mitral Stenosis E wave 0.71m/s MV Mean GR. mmHg A wave 1.00m/s MV Peak GR. mmHg E/A ratio 0.7 2D MVA cm2 DECEL Time 120ms PRESS 1/2 Time ms Aortic Valve Aortic Valve Aortic Stenosis V1 1.12m/s AO Mean GR. 4mmHg V2 1.21m/s AO Peak GR. 6mmHg LVOT Diameter 2.1 (1.8-2.4cm) Doppler IONA 3.20cm2 Other Information Quality : Technically Limited Rhythm : Technically limited study due to body habitus. Conclusion lvef 70% by visual estimate normal rv function left atrium enlarged mild mitral regurg SIGNED BY: ALISSON JONES MD SIGNED DATE/TIME: 01/07/24 1541 Condition at Discharge: Good Final Diagnosis/Problems List COPD exacerbation Bronchial Asthma Acute repiratory failure CAP both bacterial and viral common causes ruled out, obesity prediabetic GERD Discharge Disposition: Home Discharge Instruct/Medications Diet: Regular Activity: No Restrictions, As Tolerated Follow Up/Referral: 7 days Discharge Statement: "Patient was advised to return to the ER or call 911 if any headaches, dizziness, shortness of breath, chest pain, abdominal pain, bleeding, fevers, or worsening of medical condition. Patient was counseled about treatment plan, medications, possible side effects, patientverbalized understanding. All questions were answered to the best of my ability. This discharge took greater then 30 minutes in planning, reviewing documentation, counseling the patient, and discussing with other team members." ASSESSMENT ASSESSMENT Assessment COPD exacerbation Bronchial Asthma Acute repiratory failure obesity WALLY DALE RESIDENT Jan 12, 2024 21:04
--- NOTE | 2024-01-12 21:24 | DVHPN2 ---
Progress Note - Dictate Date Seen: Jan 12, 2024 Medical Necessity Reason Pt with a Central, PICC or Fol: No Subjective Patient seen and examined at bedside. Breathing comfortably on room air. Overnight events reviewed. vital signs Vital Sign Date Time Temp Pulse Resp B/P (MAP) Pulse Ox O2 Delivery O2 Flow Rate FiO2 01/12/24 17:55 98.9 80 17 99 01/12/24 16:50 100/56 (71) 01/12/24 14:39 Room Air 0.0 01/12/24 14:39 21 Total Intake and Output 01/11/24 01/11/24 01/12/24 15:00 23:00 07:00 Intake Total 425 ml 200 ml Output Total 1700 ml Balance 425 ml -1500 ml medications Current Medications Medications Dose Ordered Sig/Nichole Route Start Time Stop Time Status Last Admin Dose Admin Ipratropium Morley 0.5 mg Q6HPRN PRN NEB 01/09/24 15:30 UNV Albuterol 2.5 mg Q6HPRN PRN NEB 01/09/24 15:30 UNV objective Gen.: Patient lying in bed in no apparent distress. Breathing on room air. Head: Normocephalic, atraumatic. Eyes: EOMI/PERRLA. Ears: Normal hearing. Normal anatomy. Neck/trachea: Trachea midline, supple. Nose: Normal external anatomy. Mouth: Moist mucous membranes. Chest: Decreased air entry bilaterally. No wheezing or rhonchi. Cardiovascular: Positive S1, positive S2. Regular rate and rhythm. Abdomen: Positive bowel sounds in all 4 quadrants. Soft, non-tender, non- distended. : Deferred. Rectal: Deferred. Skin: Warm, dry. Intact. Extremities: 2+ radial pulses bilaterally. No lower extremity edema. Neuro: Awake, alert, oriented x3. No gross motor or sensory deficits. Cranial nerves II through XII intact. Gait not assessed. laboratory and microbiology Laboratory Tests 01/09/24 13:26 01/08/24 05:15 Test 01/08/24 05:15 Range/Units Serum Glucose 115 H 74-106 mg/dL Assessment/Plan Impression: Acute hypoxic respiratory failure Asthma exacerbation Strep throat Hx of nicotine dependence Obesity BMI 31.1 Events: Breathing on room air No respiratory distress. Continue bronchodilators Continue IV steroids - transition to PO steroids Continue antibiotics Incentive spirometry Received magnesium IV Monitor renal function Patient is stable for discharge from the pulmonary standpoint. Follow up in Pulmonary Clinic as outpatient. Labs and imaging reviewed. Rest of plan as noted below. Plan: Supplemental oxygen PRN. Titrate to keep O2 sats above 92%. Continue bronchodilators. Continue IV steroids - transition to PO steroids Continue antibiotics Incentive spirometry Monitor renal function. Monitor electrolytes. Supplement as necessary. Monitor ins and outs. Magnesium IV supplementation Diet and lifestyle modifications for weight reduction Obesity, complicates all care. DVT prophylaxis. Prognosis: Guarded given patient's multiple co-morbidities. Rest of plan per hospitalist and other consultants. A total of 51 minutes of clinical care time was spent reviewing the patient record, examining the patient, making a diagnostic and therapeutic plan, discussing this plan with the medical personnel, following up on diagnostic studies and following the patient for clinical stability excluding any and all procedures. At least 50% of this time was spent in direct, [id number] contact. Thank you Dr. Gloria Agosto MD, for allowing me to participate in this patient's care. Further recommendations will depend on the patient's clinical course. Please do not hesitate to contact me if you have any questions or concerns. This medical document was created using an electronic medical record system with [employer] dictation system. Although these documentations are being carefully reviewed, there may still be some phonetic and typographical changes. The errors are purely typographical, due to imperfection on the software program, and do not reflect any compromise in the patient's medical care Dietary Evaluation Review Comments: Continue current plan of care Expected Outcomes/Goals: F/U in 3-5 days Plan discussed with: Patient, Other (RORY Lugo) MIGUEL SZYMANSKI MD Jan 12, 2024 21:24
== END 2024-01-12 19:53 | disposition home or self-care (01) | DRG 189 ==
LOC: ER 14:33 → OVERFLOW 20:11 → WEST WING 01-07 02:45
PROVIDERS: ADMIT Student in an Organized Health Care Education/Training Program; ATTEND Emergency Medicine
DX: J96.01 Acute respiratory failure with hypoxia (principal); J44.1 Chronic obstructive pulmonary disease with (acute) exacerbation; J45.901 Unspecified asthma with (acute) exacerbation; J98.11 Atelectasis; H33.21 Serous retinal detachment, right eye; E03.9 Hypothyroidism, unspecified; Z20.822 Contact with and (suspected) exposure to COVID-19; K21.9 Gastro-esophageal reflux disease without esophagitis; R73.03 Prediabetes; J02.0 Streptococcal pharyngitis; J98.4 Other disorders of lung; E66.9 Obesity, unspecified; Z68.30 Body mass index [BMI] 30.0-30.9, adult; Z90.49 Acquired absence of other specified parts of digestive tract; Z82.0 Family history of epilepsy and other diseases of the nervous system; Z80.1 Family history of malignant neoplasm of trachea, bronchus and lung; Z80.41 Family history of malignant neoplasm of ovary; Z87.891 Personal history of nicotine dependence; Z68.31 Body mass index [BMI] 31.0-31.9, adult
CPT/HCPCS: 36415; 71045; 80048; 80053; 81001; 82306; 82607; 83036; 83880; 84439; 84443; 84481; 84484; 85025; 87070; 87077; 87186; 87205; 87426; 87804; 93005; 93306; 94640; 96365; 96375; 99291; G0378